=== PATIENT | male | born 1950 | race Caucasian/White ===

== ENCOUNTER 2021-05-22 19:15 | Inpatient (IN) ==
[2021-05-22 21:40] LABS: Basophils # (Auto) 0.01 K/mcL (0.00-0.30); Basophils % (Auto) 0.1 % (0.0-2.0); Eosinophils # (Auto) 0 K/mcL (0.00-0.70); Eosinophils % (Auto) 0 % (0.0-7.0); Hematocrit 36.7 % (40.1-51.0); Hemoglobin 12.1 g/dL (13.7-17.5); Lymphocytes # (Auto) 1.68 K/mcL (1.50-4.80); Lymphocytes % (Auto) 16.2 % (15.5-49.0); Mean Cell Volume 90.8 fL (80.0-100.0); Mean Platelet Volume 10.8 fL (7.4-10.4); Monocytes # (Auto) 0.91 K/mcL (0.10-0.90); Monocytes % (Auto) 8.8 % (1.0-12.0); Neutrophils % (Auto) 74.9 % (38.0-78.0); Platelet Count 152 K/mcL (140-440); RBC 4.04 M/mcL (4.63-6.08); Red Cell Distribution Width 13.6 % (11.5-14.5); WBC 10.4 K/mcL (4.5-11.0)
--- NOTE | 2021-05-22 21:41 | Emergency Department Note ---
HPI General Chief complaint: Cold/Flu Symptoms Stated complaint: Short of breath COVID positive Time Seen by Provider: 05/22/21 19:36 Source: patient Mode of arrival: ambulatory Limitations: no limitations History of Present Illness HPI Narrative: Narrative: 70-year-old male presents to the emergency department stating that he is Covid positive. States he has been sick for 10 days. Has cough and shortness of brinda ath. Rates his discomfort as a 7 on a 0-to-10 scale. States it is constant. Nothing makes it better or worse. Associated with the virus. No radiation of the symptoms. States he was given a pulse oximeter and at home he noted it to be in the 70s. His instructions were to go to the ER if that were the case. He states that he been unable to sleep because of this. The He describes his past medical history of COPD, morbid obesity, congestive heart failure. Patient states that he has been smoking in the past. Patient states that his is Covid positive and sick. She did not get vacci nated. He states that he did get vaccinated. Related Data Home Medications Medication Instructions Recorded Confirmed aspirin 81 mg PO DAILY 01/12/18 05/19/21 atorvastatin 40 mg PO HS 01/12/18 05/19/21 carvedilol [Coreg] 3.125 mg PO DAILY 01/12/18 05/19/21 cholecalciferol (vitamin D3) 5,000 unit PO DAILY 01/12/18 05/19/21 [Dialyvite Vitamin D] cyanocobalamin (vitamin B-12) 500 mcg PO DAILY 01/12/18 05/19/21 docusate sodium 250 mg PO DAILY 01/12/18 05/19/21 duloxetine [Cymbalta] 60 mg PO DAILY 01/12/18 05/19/21 furosemide 40 mg PO DAILY 01/12/18 05/19/21 lisinopril [Zestril] 40 mg PO DAILY 01/12/18 05/19/21 methocarbamol [Robaxin-750] 750 mg PO DAILY 01/12/18 05/19/21 omeprazole 20 mg PO ACB 01/12/18 05/23/21 psyllium husk (aspartame) [Natural PO QHS 01/12/18 05/19/21 Psyllium Fiber Powder] spironolactone 25 mg PO DAILY 01/12/18 05/23/21 terazosin 2 mg PO DAILY 01/12/18 05/23/21 acetaminophen 325 mg tablet 650 mg PO QID PRN tab 03/24/21 05/19/21 albuterol sulfate 90 mcg/actuation 2 puff INHALATION QID 03/24/21 05/19/21 aerosol inhaler budesonide-formoterol HFA 160 2 puff INHALATION BID 03/24/21 05/19/21 mcg-4.5 mcg/actuation aerosol inhaler diclofenac sodium 1 % topical gel 2 g TOPICAL QID 03/24/21 05/19/21 hydrocortisone 2.5 % topical 1 applic TOPICAL BID 03/24/21 05/19/21 ointment lidocaine 5 % topical ointment 1 applic TOPICAL BID 03/24/21 05/19/21 tiotropium bromide 2.5 2 puff INHALATION QDAY 03/24/21 05/23/21 mcg/actuation mist for inhalation tizanidine 4 mg tablet 4 mg PO BID PRN 03/24/21 05/19/21 varenicline 1 mg tablet 1 mg PO BID 03/24/21 05/23/21 metformin 500 mg tablet 500 mg PO BID 04/17/21 05/19/21 griseofulvin microsize 500 mg 1,000 mg PO tab 05/19/21 05/19/21 tablet Previous Rx's Medication Instructions Recorded doxycycline monohydrate 100 mg 100 mg PO BID 7 Days #14 cap 05/19/21 capsule prednisone 20 mg tablet 40 mg PO QAM 5 Days #10 tab 05/19/21 Allergies Allergy/AdvReac Type Severity Reaction Status Date / Time gabapentin Allergy Unknown Unknown Verified 05/19/21 09:58 Review of Systems ROS ROS Narrative: Narrative: Constitutional: Reports fever and weakness Eyes: Reports other (Dry eyes.) ENT ED: Reports throat pain and rhinorrhea Cardiovascular: Denies chest pain Respiratory: Reports shortness of breath and cough Gastrointestinal: Reports nausea; Denies vomiting Genitourinary: Denies dysuria Musculoskeletal: Reports back pain Integumentary: Denies rash Neurological: Reports headache Psychiatric: Denies anxiety and depression Hematological/Lymphatic: Denies easy bleeding Allergic/Immunologic: Denies facial swelling PFSH Narrative Patient History Narrative: Narrative: Medical/Surgical/Family History All Active Problems (Updated 05/23/21 @ 04:52 by Brock Campbell MD) 2019 novel coronavirus-infected pneumonia (NCIP) (Acute) COPD exacerbation (Acute) COVID-19 (Acute) Right hip pain (Chronic) Low back pain (Chronic) Nicotine dependence (Chronic) AAA (abdominal aortic aneurysm) without rupture (Chronic) Actinic keratosis (Chronic) Acute bronchitis due to coxsackievirus (Chronic) Acute bronchitis (Chronic) Acute embolism and thrombosis of other specified deep vein of unspecified lower extremity (Chronic) Angina pectoris (Chronic) BPH (benign prostatic hyperplasia) (Chronic) Bipolar disorder (Chronic) Cervical spondylosis (Chronic) Carpal tunnel syndrome (Chronic) COPD (chronic obstructive pulmonary disease) (Chronic) Chronic diastolic heart failure (Chronic) Combined forms of age-related cataract, left eye (Chronic) Condyloma latum (Chronic) Dysthymic disorder (Chronic) Essential hypertension (Chronic) Hyperlipidemia (Chronic) Impaired fasting glucose (Chronic) Major depressive disorder (Chronic) Morbid obesity due to excess calories (Chronic) Obesity (Chronic) Osteoarthritis of hip (Chronic) Other intervertebral disc degeneration, lumbar region (Chronic) Other meniscus derangements, other medial meniscus, unspecified knee (Chronic) Other specified postprocedural states (Chronic) Pain in right shoulder (Chronic) Pain in unspecified knee (Chronic) Pain in unspecified lower leg (Chronic) Radiculopathy, cervical region (Chronic) Serous retinal detachment, left eye (Chronic) Lumbar vertebral fracture (Chronic) Diabetes (Chronic) Mild congestive heart failure (Chronic) Depression (Chronic) PTSD (post-traumatic stress disorder) (Chronic) Chronic pain (Chronic) Lumbar stenosis with neurogenic claudication (Chronic) Urinary frequency (Chronic) Radiculopathy, lumbar region (Acute) Urinary urgency (Acute) Urge incontinence (Acute) Incomplete bladder emptying (Acute) Slow urinary stream (Acute) Elevated PSA (Acute) Medical History AAA (abdominal aortic aneurysm) without rupture Actinic keratosis Acute bronchitis Acute bronchitis due to coxsackievirus Acute embolism and thrombosis of other specified deep vein of unspecified lower extremity Angina pectoris Bipolar disorder BPH (benign prostatic hyperplasia) Carpal tunnel syndrome Cervical spondylosis Chronic diastolic heart failure Chronic pain Combined forms of age-related cataract, left eye Condyloma latum COPD (chronic obstructive pulmonary disease) COPD exacerbation COVID-19 Depression Diabetes Dysthymic disorder Essential hypertension Hyperlipidemia Impaired fasting glucose Low back pain Lumbar stenosis with neurogenic claudication Lumbar vertebral fracture L4-5 - fell off aicraft Major depressive disorder Mild congestive heart failure Morbid obesity due to excess calories Nicotine dependence Obesity Osteoarthritis of hip Other intervertebral disc degeneration, lumbar region Other meniscus derangements, other medial meniscus, unspecified knee Pain in right shoulder Pain in unspecified knee Pain in unspecified lower leg PTSD (post-traumatic stress disorder) Radiculopathy, cervical region Radiculopathy, lumbar region Right hip pain Serous retinal detachment, left eye Urinary frequency Voiding every 1 hour at night Surgical History History of arthroplasty of right shoulder Other specified postprocedural states Family History Other Cancer HTN (hypertension) Social History Smoking Status: Current some day smoker Alcohol Intake Frequency: a few times a month Substance Use: does not use Exam Narrative Narrative: Narrative: Well-developed morbidly obese elderly male lying in bed with a pulse ox of 92 to 94% on 2 L but only 88% when taken off of oxygen. Temperature is 100.7. Respiratory rate is 18 with a pulse of 79. Weight is 323 pounds. General Limitations: no limitations General appearance: Present alert and in distress Head Head: Present atraumatic and normocephalic Eye Eye: Present normal appearance Neck Neck: Present normal inspection Respiratory Respiratory: Present respiratory distress Cardiovascular Cardiovascular: Present regular rate and normal rhythm Adbominal Abdominal: Present soft; Absent tenderness Extremities Extremities: Present normal inspection Neurological Neurological: Present alert and oriented X3 Psychiatric Psychiatric: Present normal affect and normal mood Skin Skin: Present warm (WNL) and dry Course Consultations Consultation #1: Discussed with hospitalist. Patient is high risk with positive Covid, hypoxia, COPD, CHF, morbid obesity. He recommends admission. Labs and x-ray pending. Time: 20:30 Consultation #2: Chest x-ray shows bilateral infiltrates compatible with Covid. Labs still pending. Time: 21:40 Vital Signs Vital signs: Vital Signs Temperature 100.7 F H 05/22/21 19: Pulse Rate 79 05/22/21 19: Respiratory Rate 18 05/22/21 19:17 Blood Pressure 141/67 05/22/21 19:17 Pulse Oximetry (%) 94 05/22/21 19:17 Temperature 98.2 F 05/23/21 00:02 Pulse Rate 73 05/23/21 00:02 Respiratory Rate 33 H 05/23/21 00:02 Blood Pressure 132/59 05/23/21 00:02 Pulse Oximetry (%) 94 05/23/21 00:02 MDM MDM Narrative Medical decision making narrative: Narrative: Elderly male with known positive Covid test today at the urgent care clinic presents to the ER because of hypoxia. He has the risk factors which include COPD, CHF, morbid obesity with a BMI of 46, tobacco use. Differential diagnosis includes Covid pneumonia, other viral infections, christianne terial infection, other Chest x-ray was compatible with Covid pneumonia. White count was normal. Chemistry panel was unremarkable as was the CBC. Case was discussed with the hospitalist who recognized the patient is being a high risk individual in view of his positive Covid test with COPD, C HF, morbid obesity, tobacco abuse. He he will admit the patient to the hospital for further care. Lab Data Result diagrams: 05/22/21 20:14 05/22/21 20:14 Labs: Lab Results 05/22/21 05/22/21 05/22/21 Range/Units 20:14 20:14 20:30 WBC 10.4 (4.5-11.0) K/mcL RBC 4.04 L (4.63-6.08) M/mcL Hgb 12.1 L (13.7-17.5) g/dL Hct 36.7 L (40.1-51.0) % MCV 90.8 (80.0-100.0) fL MCH 30.0 (26.0-34.0) pg MCHC 33.0 (31.0-36.0) g/dL RDW 13.6 (11.5-14.5) % Plt Count 152 (140-440) K/mcL MPV 10.8 H (7.4-10.4) fL Neut % (Auto) 74.9 (38.0-78.0) % Lymph % (Auto) 16.2 (15.5-49.0) % [place] % (Auto) 8.8 (1.0-12.0) % Eos % (Auto) 0 (0.0-7.0) % Baso % (Auto) 0.1 (0.0-2.0) % Lymph # (Auto) 1.68 (1.50-4.80) K/mcL [place] # (Auto) 0.91 H (0.10-0.90) K/mcL Eos # (Auto) 0 (0.00-0.70) K/mcL Baso # (Auto) 0.01 (0.00-0.30) K/mcL Absolute Neutrophils 7.78 (1.80-8.00) K/mcL D-Dimer (0.27-0.50) ug/mL VBG Lactic Acid 1.0 (0.5-2.0) mmol/L Sodium 135 (133-145) mmol/L Potassium 4.2 (3.3-5.1) mmol/L Chloride 95 L (96-108) mmol/L Carbon Dioxide 27 (22-30) mmol/L Anion Gap 13.0 (8.0-16.0) BUN 12 (8-23) mg/dL Creatinine 0.9 (0.7-1.2) mg/dL GFR Calculation 85 Glucose 111 H (70-105) mg/dL Calcium 8.6 (8.6-10.4) mg/dL Total Bilirubin 0.4 (0.1-1.0) mg/dL AST 34 (<40) U/L ALT 20 (<40) U/L Alkaline Phosphatase 49 (39-117) U/L C-Reactive Protein (0.03-0.80) mg/dL Total Protein 6.5 (5.9-8.4) gm/dL Albumin 3.5 (3.2-5.2) gm/dL Globulin 3.0 (2.2-3.7) gm/dL Albumin/Globulin Ratio 1.2 (1.0-2.3) Procalcitonin (<0.10) ng/mL 05/22/21 05/22/21 05/22/21 Range/Units 22:16 22:16 22:17 WBC (4.5-11.0) K/mcL RBC (4.63-6.08) M/mcL Hgb (13.7-17.5) g/dL Hct (40.1-51.0) % MCV (80.0-100.0) fL MCH (26.0-34.0) pg MCHC (31.0-36.0) g/dL RDW (11.5-14.5) % Plt Count (140-440) K/mcL MPV (7.4-10.4) fL Neut % (Auto) (38.0-78.0) % Lymph % (Auto) (15.5-49.0) % [place] % (Auto) (1.0-12.0) % Eos % (Auto) (0.0-7.0) % Baso % (Auto) (0.0-2.0) % Lymph # (Auto) (1.50-4.80) K/mcL [place] # (Auto) (0.10-0.90) K/mcL Eos # (Auto) (0.00-0.70) K/mcL Baso # (Auto) (0.00-0.30) K/mcL Absolute Neutrophils (1.80-8.00) K/mcL D-Dimer 1.04 H (0.27-0.50) ug/mL VBG Lactic Acid (0.5-2.0) mmol/L Sodium (133-145) mmol/L Potassium (3.3-5.1) mmol/L Chloride (96-108) mmol/L Carbon Dioxide (22-30) mmol/L Anion Gap (8.0-16.0) BUN (8-23) mg/dL Creatinine (0.7-1.2) mg/dL GFR Calculation Glucose (70-105) mg/dL Calcium (8.6-10.4) mg/dL Total Bilirubin (0.1-1.0) mg/dL AST (<40) U/L ALT (<40) U/L Alkaline Phosphatase (39-117) U/L C-Reactive Protein 12.90 H (0.03-0.80) mg/dL Total Protein (5.9-8.4) gm/dL Albumin (3.2-5.2) gm/dL Globulin (2.2-3.7) gm/dL Albumin/Globulin Ratio (1.0-2.3) Procalcitonin 0.21 H (<0.10) ng/mL Discharge Plan Patient/Caregiver Discharge Instructions Pt seen by TECHNICAL SUPPORT TECHNICIAN/PA only: No Clinical Impression: 2019 novel coronavirus-infected pneumonia (NCIP) Activity: as instructed Patient Disposition: Xfer As Inpt ([facility]) Condition: Fair Discharge Date/Time: 05/22/21 23:06
[2021-05-22 22:01] LABS: ALT/SGPT 20 U/L (<40); AST/SGOT 34 U/L (<40); Albumin 3.5 gm/dL (3.2-5.2); Albumin/Globulin Ratio 1.2 (1.0-2.3); Alkaline Phosphatase 49 U/L (39-117); Bilirubin,Total 0.4 mg/dL (0.1-1.0); Blood Urea Nitrogen 12 mg/dL (8-23); Calcium 8.6 mg/dL (8.6-10.4); Carbon Dioxide 27 mmol/L (22-30); Chloride 95 mmol/L (96-108); Glomerular Filtration Rate 85; Glucose 111 mg/dL (70-105)
[2021-05-22] MEDS ORDERED: SENNOSIDES 1 TABLET PO PRN ×2 (22:06→23:22)
[2021-05-22] MEDS ORDERED: ALBUTEROL SULFATE 2.5 MG/3 ML NEBULIZER NEB PRN ×2 (22:06→23:22)
[2021-05-22] MEDS ORDERED: IPRATROPIUM/ALBUTEROL 3 ML AMPUL.NEB NEB PRN ×2 (22:06→23:22)
[2021-05-22] MEDS ORDERED: ACETAMINOPHEN 325 MG TABLET PO PRN ×2 (22:06→23:22)
[2021-05-22] MEDS ORDERED: LACTULOSE 20 GM/30 ML ORAL.SOL PO PRN ×2 (22:06→23:22)
[2021-05-22] MEDS ORDERED: ONDANSETRON 4 MG/2 ML VIAL IV PRN ×2 (22:06→23:22)
[2021-05-22] MEDS ORDERED: REMDESIVIR 200 MG in 0.9 % SODIUM CHLORIDE 250 ML IV ONE ×2 (22:06→23:22)
[2021-05-22] MEDS ORDERED: ENOXAPARIN 40 MG/0.4 ML SYRINGE SQ SCH (22:10)
[2021-05-22] MEDS ORDERED: DEXAMETHASONE 10 MG/ML VIAL IV SCH (22:10)
[2021-05-22] MEDS ORDERED: DEXTROSE 50% 50 ML VIAL IV PRN ×2 (22:12→23:22)
[2021-05-22] MEDS ORDERED: DEXTROSE 31 GM ORAL.SUSP PO PRN ×2 (22:12→23:22)
--- NOTE | 2021-05-22 22:16 | Internal Med History&Physical ---
HPI History of Present Illness Patient information: Note initiated : 05/22/21 at 10:14 pm Service Date, if different from initiated Date: [] Patient: Josiah Leos 70 y/o M admitted on for Short of breath COVID positive. Chief Complaint: [] History of present illness: Mr. Leos is a 70 year old male with a history of CHF, COPD, type 2 DM, obesity, fully vaccinated for COVID-19 with the Moderna vaccine, recently diagnosed with COVID-19 who presented to the ED for hypoxia on a home oxygen saturation meter. In the ED the patient was found to have a 2 l/min oxygen requirement, workup is suggestive of severe COVID-19 pneumonia as the cause of hypoxia. Hospital medicine was asked to admit the patient. Review of systems Constitutional: no fever, fatigue, or weight loss Eyes: no vision changes or pain Cardiovascular: no chest pain, no palpitations Respiratory: positive for cough and dyspnea Gastrointestinal: no nausea, vomiting, or diarrhea Genitourinary: no dysuria or difficulty voiding Musculoskeletal: no arthralgia or myalgia Integumentary: no skin lesion or wound Neurological: no focal weakness or numbness Psychiatric: no anxiety or depression Physical exam Head: Atraumatic, normal inspection. Eyes: normal appearance, no scleral icterus. Neck: full ROM Respiratory: no respiratory distress. Cardiovascular: normal rate and rhythm, S1, S2. GI/Abdominal: obesely distended, soft, nontender, no guarding. Extremities: full range of motion, nontender. Neurological: CN II-XII intact, intact motor, intact sensation. Psychiatric: normal mood. Skin: warm, normal color PFSH PFSH All Active Problems (Updated 05/23/21 @ 04:52 by Brock Campbell MD) 2019 novel coronavirus-infected pneumonia (NCIP) (Acute) COPD exacerbation (Acute) COVID-19 (Acute) Right hip pain (Chronic) Low back pain (Chronic) Nicotine dependence (Chronic) AAA (abdominal aortic aneurysm) without rupture (Chronic) Actinic keratosis (Chronic) Acute bronchitis due to coxsackievirus (Chronic) Acute bronchitis (Chronic) Acute embolism and thrombosis of other specified deep vein of unspecified lower extremity (Chronic) Angina pectoris (Chronic) BPH (benign prostatic hyperplasia) (Chronic) Bipolar disorder (Chronic) Cervical spondylosis (Chronic) Carpal tunnel syndrome (Chronic) COPD (chronic obstructive pulmonary disease) (Chronic) Chronic diastolic heart failure (Chronic) Combined forms of age-related cataract, left eye (Chronic) Condyloma latum (Chronic) Dysthymic disorder (Chronic) Essential hypertension (Chronic) Hyperlipidemia (Chronic) Impaired fasting glucose (Chronic) Major depressive disorder (Chronic) Morbid obesity due to excess calories (Chronic) Obesity (Chronic) Osteoarthritis of hip (Chronic) Other intervertebral disc degeneration, lumbar region (Chronic) Other meniscus derangements, other medial meniscus, unspecified knee (Chronic) Other specified postprocedural states (Chronic) Pain in right shoulder (Chronic) Pain in unspecified knee (Chronic) Pain in unspecified lower leg (Chronic) Radiculopathy, cervical region (Chronic) Serous retinal detachment, left eye (Chronic) Lumbar vertebral fracture (Chronic) Diabetes (Chronic) Mild congestive heart failure (Chronic) Depression (Chronic) PTSD (post-traumatic stress disorder) (Chronic) Chronic pain (Chronic) Lumbar stenosis with neurogenic claudication (Chronic) Urinary frequency (Chronic) Radiculopathy, lumbar region (Acute) Urinary urgency (Acute) Urge incontinence (Acute) Incomplete bladder emptying (Acute) Slow urinary stream (Acute) Elevated PSA (Acute) Medical History AAA (abdominal aortic aneurysm) without rupture Actinic keratosis Acute bronchitis Acute bronchitis due to coxsackievirus Acute embolism and thrombosis of other specified deep vein of unspecified lower extremity Angina pectoris Bipolar disorder BPH (benign prostatic hyperplasia) Carpal tunnel syndrome Cervical spondylosis Chronic diastolic heart failure Chronic pain Combined forms of age-related cataract, left eye Condyloma latum COPD (chronic obstructive pulmonary disease) COPD exacerbation COVID-19 Depression Diabetes Dysthymic disorder Essential hypertension Hyperlipidemia Impaired fasting glucose Low back pain Lumbar stenosis with neurogenic claudication Lumbar vertebral fracture L4-5 - fell off aicraft Major depressive disorder Mild congestive heart failure Morbid obesity due to excess calories Nicotine dependence Obesity Osteoarthritis of hip Other intervertebral disc degeneration, lumbar region Other meniscus derangements, other medial meniscus, unspecified knee Pain in right shoulder Pain in unspecified knee Pain in unspecified lower leg PTSD (post-traumatic stress disorder) Radiculopathy, cervical region Radiculopathy, lumbar region Right hip pain Serous retinal detachment, left eye Urinary frequency Voiding every 1 hour at night Surgical History History of arthroplasty of right shoulder Other specified postprocedural states Family History Other Cancer HTN (hypertension) Social History marital status: education level: college occupational status: employed and retired occupation: Retired [employer]; works as [employer] smoking status: Current some day smoker alcohol intake frequency: a few times a month substance use type: does not use MEDS/ALLERGIES Home Medications and Allergies Home Medications Medication Instructions Recorded Confirmed Type aspirin 81 mg PO DAILY 01/12/18 05/23/21 History atorvastatin 40 mg PO HS 01/12/18 05/23/21 History carvedilol [Coreg] 3.125 mg PO DAILY 01/12/18 05/23/21 History cholecalciferol (vitamin D3) 5,000 unit PO DAILY 01/12/18 05/23/21 History [Dialyvite Vitamin D] cyanocobalamin (vitamin B-12) 500 mcg PO DAILY 01/12/18 05/23/21 History docusate sodium 250 mg PO BID 01/12/18 05/23/21 History duloxetine [Cymbalta] 60 mg PO QHS 01/12/18 05/23/21 History furosemide 40 mg PO DAILY 01/12/18 05/23/21 History lisinopril [Zestril] 40 mg PO DAILY 01/12/18 05/23/21 History methocarbamol [Robaxin-750] 750 mg PO DAILY 01/12/18 05/23/21 History omeprazole 20 mg PO ACB 01/12/18 05/23/21 History psyllium husk (aspartame) [Natural 2 ea PO QHS 01/12/18 05/23/21 History Psyllium Fiber Powder] spironolactone 25 mg PO DAILY 01/12/18 05/23/21 History terazosin 2 mg PO DAILY 01/12/18 05/23/21 History acetaminophen 325 mg tablet 650 mg PO QID PRN tab 03/24/21 05/23/21 History albuterol sulfate 90 mcg/actuation 2 puff INHALATION QIDP PRN MDD 03/24/21 05/23/21 History aerosol inhaler wheezing budesonide-formoterol HFA 160 2 puff INHALATION BID 03/24/21 05/23/21 History mcg-4.5 mcg/actuation aerosol inhaler diclofenac sodium 1 % topical gel 2 g TOPICAL QID 03/24/21 05/23/21 History hydrocortisone 2.5 % topical 1 applic TOPICAL BID 03/24/21 05/23/21 History ointment lidocaine 5 % topical ointment 1 applic TOPICAL BID 03/24/21 05/23/21 History tiotropium bromide 2.5 2 puff INHALATION QDAY 03/24/21 05/23/21 History mcg/actuation mist for inhalation tizanidine 4 mg tablet 4 mg PO BID PRN 03/24/21 05/23/21 History varenicline 1 mg tablet 1 mg PO BID 03/24/21 05/23/21 History metformin 500 mg tablet 500 mg PO BID 04/17/21 05/23/21 History doxycycline monohydrate 100 mg 100 mg PO BID 7 Days #14 cap 05/19/21 05/23/21 Rx capsule griseofulvin microsize 500 mg 1,000 mg PO tab 05/19/21 05/19/21 History tablet prednisone 20 mg tablet 40 mg PO QAM 5 Days #10 tab 05/19/21 05/23/21 Rx metoprolol succinate 12.5 mg PO DAILY 05/23/21 05/23/21 History Allergies Allergy/AdvReac Type Severity Reaction Status Date / Time gabapentin Allergy Unknown Unknown Verified 05/19/21 09:58 EXAM Constitutional Vitals: Temp Pulse Resp BP Pulse Ox 100.7 F H 78 18 145/64 91 05/22/21 19:17 05/22/21 21:52 05/22/21 19:17 05/22/21 21:52 05/22/21 21:52 DATA Data Completed and Pending Labs: Labs from last 24 hours 05/22/21 05/22/21 05/22/21 20:30 20:14 20:14 WBC 10.4 RBC 4.04 L Hgb 12.1 L Hct 36.7 L MCV 90.8 MCH 30.0 MCHC 33.0 RDW 13.6 Plt Count 152 MPV 10.8 H Neut % (Auto) 74.9 Lymph % (Auto) 16.2 [place] % (Auto) 8.8 Eos % (Auto) 0 Baso % (Auto) 0.1 Lymph # (Auto) 1.68 [place] # (Auto) 0.91 H Eos # (Auto) 0 Baso # (Auto) 0.01 Absolute Neutrophils 7.78 VBG Lactic Acid 1.0 Sodium 135 Potassium 4.2 Chloride 95 L Carbon Dioxide 27 Anion Gap 13.0 BUN 12 Creatinine 0.9 GFR Calculation 85 Glucose 111 H Calcium 8.6 Total Bilirubin 0.4 AST 34 ALT 20 Alkaline Phosphatase 49 Total Protein 6.5 Albumin 3.5 Globulin 3.0 Albumin/Globulin Ratio 1.2 A/P Narrative A/P Narrative: Assessment: 70 year old male with a history of CHF, COPD, type 2 DM, obesity, fully vaccinated with the Moderna vaccine, diagnosed with COVID-19 on 05/19/21 now admitted for severe COVID-19 pneumonia. #Acute hypoxic respiratory failure #Severe COVID-19 pneumonia #Congestive heart failure #COPD #Type 2 diabetes mellitus #Essential hypertension #Depression #GERD #BPH #Obesity w/ BMI 46 Plan -Dexamethasone and Remdesivir -Oxygen supplementation -Check CRP, d-dimer, procalcitonin -DuoNeb Q6H and albuterol prn -Home medications reconciliation -Continuous pulse oximetry -hospital monitor -DVT ppx: Lovenox -Code status: -Disposition: TBD Time Spent With Patient Time: Total time spent is greater than 50% in coordination of care (as documented) at patient's floor/unit and/or counseling patient:
[2021-05-23] MEDS ORDERED: ENOXAPARIN 40 MG/0.4 ML SYRINGE ONE (00:59)
[2021-05-23] MEDS ORDERED: DEXAMETHASONE 10 MG/ML VIAL ONE (00:59)
[2021-05-23] MEDS ORDERED: 0.9 % SODIUM CHLORIDE 10 ML SYRINGE IV SCH (06:00)
[2021-05-23] MEDS: 0.9 % SODIUM CHLORIDE 10 ML SYRINGE IV SCH ×3 (06:28→23:15)
[2021-05-23 07:04] LABS: Basophils # (Auto) 0.01 K/mcL (0.00-0.30); Basophils % (Auto) 0.1 % (0.0-2.0); Eosinophils # (Auto) 0 K/mcL (0.00-0.70); Eosinophils % (Auto) 0 % (0.0-7.0); Hematocrit 37.1 % (40.1-51.0); Hemoglobin 12.3 g/dL (13.7-17.5); Lymphocytes # (Auto) 1.26 K/mcL (1.50-4.80); Lymphocytes % (Auto) 12.5 % (15.5-49.0); Mean Cell Volume 92.1 fL (80.0-100.0); Mean Corpuscular HGB Conc 33.2 g/dL (31.0-36.0); Mean Platelet Volume 10.5 fL (7.4-10.4); Monocytes # (Auto) 0.92 K/mcL (0.10-0.90); Monocytes % (Auto) 9.1 % (1.0-12.0); Neutrophils % (Auto) 78.3 % (38.0-78.0); Platelet Count 146 K/mcL (140-440); RBC 4.03 M/mcL (4.63-6.08); Red Cell Distribution Width 13.5 % (11.5-14.5); WBC 10.1 K/mcL (4.5-11.0)
[2021-05-23] MEDS ORDERED: INSULIN LISPRO 1 UNIT/0.01 ML UNIT SQ SCH (07:30)
[2021-05-23] MEDS: INSULIN LISPRO 1 UNIT/0.01 ML UNIT SQ SCH ×4 (07:39→23:12)
[2021-05-23 07:46] LABS: ALT/SGPT 23 U/L (<40); AST/SGOT 43 U/L (<40); Albumin 3.2 gm/dL (3.2-5.2); Alkaline Phosphatase 46 U/L (39-117); Bilirubin,Direct < 0.2 mg/dL (0-0.3); Bilirubin,Total 0.3 mg/dL (0.1-1.0); Blood Urea Nitrogen 12 mg/dL (8-23); Calcium 8.8 mg/dL (8.6-10.4); Carbon Dioxide 25 mmol/L (22-30); Chloride 98 mmol/L (96-108); Globulin 3.1 gm/dL (2.2-3.7); Glomerular Filtration Rate 90; Glucose 127 mg/dL (70-105); Lactate Dehydrogenase 388 U/L (135-225); Phosphorous 2.4 mg/dL (2.5-4.5); Triglycerides 156 mg/dL (<150)
--- NOTE | 2021-05-23 08:22 | XRay Report ---
HISTORY: Short of breath, smoker, tested positive for Covid FINDINGS: There are patchy alveolar infiltrates in both lungs with the greatest involvement in the lower lobes, left worse than right. These extend up to the hilum. There is no pleural effusion. The heart is borderline enlarged but magnified by portable technique. The pulmonary vessels are obscured by the infiltrates. IMPRESSION: Bilateral alveolar infiltrates. This is more likely due to pneumonia than pulmonary edema. Interpreted and Authenticated by: Seven Chambers 05/23/21
[2021-05-23] MEDS ORDERED: ENOXAPARIN 40 MG/0.4 ML SYRINGE SQ SCH (09:00)
[2021-05-23] MEDS ORDERED: ENOXAPARIN 30 MG/0.3 ML SYRINGE SQ SCH (09:00)
[2021-05-23] MEDS: DEXAMETHASONE 10 MG/ML VIAL IV SCH (10:11)
[2021-05-23] MEDS ORDERED: tiZANidine 4 MG TABLET PO PRN (13:03)
[2021-05-23] MEDS ORDERED: IPRATROPIUM/ALBUTEROL 3 ML AMPUL.NEB NEB PRN (13:07)
[2021-05-23] MEDS: REMDESIVIR 100 MG in 0.9 % SODIUM CHLORIDE 250 ML IV SCH (15:42)
--- NOTE | 2021-05-23 16:59 | Internal Med Progress Note ---
SUBJECTIVE Subjective Patient information: Note initiated : 05/23/21 at 4:59 pm Service Date, if different from initiated Date: [] Patient: Josiah Leos 70 y/o M admitted on 05/22/21 for Short of breath COVID positive. Chief Complaint: [] Interval history: Mr. Leos is a 70 year old male with a history of CHF, COPD, type 2 DM, obesity, fully vaccinated for COVID-19 with the Moderna vaccine, recently diagnosed with COVID-19 who presented to the ED for hypoxia on a home oxygen saturation meter. In the ED the patient was found to have a 2 l/min oxyg en requirement, workup is suggestive of severe COVID-19 pneumonia as the cause of hypoxia. Hospital medicine was asked to admit the patient. 05/24: stable respiratory status, might be able to wean down oxygen requirement today, chest xray shows improved bilateral infiltrates, CRP downtrending. Review of systems: denies dyspnea, chest pain, or abdominal discomfort. Physical exam Head: Atraumatic, normal inspection. Eyes: normal appearance, no scleral icterus. Neck: full ROM Respiratory: high flow nasal canula oxygne, no respiratory distress. Cardiovascular: normal rate and rhythm, S1, S2. GI/Abdominal: obesely distended, soft, nontender, no guarding. Extremities: full range of motion, nontender. Neurological: CN II-XII intact, intact motor, intact sensation. Psychiatric: normal mood. Skin: warm, normal color Constitutional Vitals: Vital Signs Temp Pulse Resp BP Pulse Ox 97.9 F 59 L 13 117/72 97 05/23/21 16:01 05/23/21 16:01 05/23/21 16:01 05/23/21 16:01 05/23/21 16:01 Period Temp Pulse Resp BP Sys/Contreras Pulse Ox Last 24 Hr 96.8 F-100.7 F 57-87 13-33 114-162/48-105 88-98 Intake and Output 05/23/21 05/23/21 05/23/21 05:59 13:59 21:59 Intake Total 250 960 650 Output Total 450 1925 325 Balance -200 -965 325 Weight 146.646 kg 146.646 kg Patient Weight 05/24/21 05:59 Weight 146.646 kg Intake & Output: Intake & Output 05/23/21 05/23/21 05/23/21 05:59 13:59 21:59 Intake Total 250 960 650 Output Total 450 1925 325 Balance -200 -965 325 Weight 146.646 kg 146.646 kg Intake: IV 250 250 Veklury 100 mg In Sodium 250 250 Chloride 0.9% 250 ml @ 500 mls/ hr IV DAILY@1400 [facility] Rx#: [id number] Oral 960 400 Output: Void Amount 450 1925 325 Other: Meal snack Breakfast Percent of Meal Consumed 100% 100% Feeding Ability Independent Urine Appearance Clear Clear Urine Color Straw Light Destiney Light Destiney Urine Odor Normal Normal OBJ DATA Labs CBC & Chem 7: 05/24/21 05:22 05/24/21 05:22 Labs: Abnormal Lab Results 05/23/21 05/23/21 05/22/21 05:00 05:00 22:17 RBC 4.03 L Hgb 12.3 L Hct 37.1 L MPV 10.5 H Neut % (Auto) 78.3 H Lymph % (Auto) 12.5 L Lymph # (Auto) 1.26 L [place] # (Auto) 0.92 H D-Dimer Chloride Glucose 127 H Phosphorus 2.4 L AST 43 H Lactate Dehydrogenase 388 H C-Reactive Protein 14.40 H Triglycerides 156 H Procalcitonin 0.21 H 05/22/21 05/22/21 05/22/21 22:16 22:16 20:14 RBC Hgb Hct MPV Neut % (Auto) Lymph % (Auto) Lymph # (Auto) [place] # (Auto) D-Dimer 1.04 H Chloride 95 L Glucose 111 H Phosphorus AST Lactate Dehydrogenase C-Reactive Protein 12.90 H Triglycerides Procalcitonin 05/22/21 20:14 RBC 4.04 L Hgb 12.1 L Hct 36.7 L MPV 10.8 H Neut % (Auto) Lymph % (Auto) Lymph # (Auto) [place] # (Auto) 0.91 H D-Dimer Chloride Glucose Phosphorus AST Lactate Dehydrogenase C-Reactive Protein Triglycerides Procalcitonin Meds: Medications Acetaminophen (Acetaminophen 325 Mg Tablet) 650 mg PO Q6HP PRN; Protocol PRN Reason: Per Pain Protocol/Fever > 101 Albuterol/Ipratropium (Ipratropium/Albuterol 3 Ml Ampul.Neb) 3 ml NEB Q4HRT PRN PRN Reason: Shortness Of Breath Aspirin (Aspirin 81 Mg Tab.Chew) 81 mg PO DAILY [facility] Atorvastatin Calcium (Atorvastatin 40 Mg Tablet) 40 mg PO HS [facility] Dexamethasone (Dexamethasone 10 Mg/Ml Vial) 6 mg IV DAILY [facility] Stop: 06/01/21 22:09 Last Admin: 05/23/21 10:11 Dose: 6 mg Documented by: Dextrose (Dextrose 50% 50 Ml Vial) 0 ml IV UD PRN PRN Reason: Hypoglycemia Diagnostic Test (Pha) (Accu-Chek 1 Each Strip) 1 each FS ACHS [facility] Last Admin: 05/23/21 16:29 Dose: 1 each Documented by: Duloxetine HCl (Duloxetine 30 Mg Capsule) 60 mg PO HS [facility] Enoxaparin Sodium (Enoxaparin 40 Mg/0.4 Ml Syringe) 40 mg SQ DAILY [facility] Furosemide (Furosemide 40 Mg Tablet) 40 mg PO DAILY [facility] Glucose (Dextrose 31 Gm Oral.Susp) 15 gm PO PRN PRN PRN Reason: Hypoglycemia REMDESIVIR 100 mg/ Sodium (Chloride) 250 mls @ 500 mls/hr IV DAILY@1400 [facility] Stop: 05/26/21 14:29 Last Infusion: 05/23/21 16:29 Dose: Infused Documented by: Insulin Human Lispro (Insulin Lispro 1 Unit/0.01 Ml Unit) 0 unit SQ [facility]; Protocol Last Admin: 05/23/21 16:30 Dose: Not Given Documented by: Lactulose (Lactulose 20 Gm/30 Ml Oral.Linnette) 10 gm PO DAILYP PRN PRN Reason: Constipation Metoprolol Succinate (Metoprolol Succinate 25 Mg Tab.Xl.24h) 12.5 mg PO DAILY [facility] Omeprazole (Omeprazole 20 Mg Capsule) 20 mg PO ACB [facility] Ondansetron HCl (Ondansetron 4 Mg/2 Ml Vial) 4 mg IV Q4HP PRN; Protocol PRN Reason: Nausea And Vomiting Budesonide- Formoterol 160-4.5 Mcg/Actuation Hfa Inhaler 1 dose INH BID [facility] Spiriva Respimat 2.5 Mcg/Actuation Inhaler 2 dose INH DAILY [facility] Senna (Sennosides 1 Tablet) 2 tab PO HSP PRN PRN Reason: Constipation Sodium Chloride (0.9 % Sodium Chloride 10 Ml Syringe) 10 ml IV Q8 [facility] Last Admin: 05/23/21 16:30 Dose: 10 ml Documented by: Spironolactone (Spironolactone 25 Mg Tablet) 25 mg PO DAILY [facility] Terazosin HCl (Terazosin 1 Mg Capsule) 2 mg PO DAILY [facility] Tizanidine HCl (Tizanidine 4 Mg Tablet) 4 mg PO BIDP PRN PRN Reason: pain A/P Narrative A/P Narrative: Assessment: 70 year old male with a history of CHF, COPD, type 2 DM, obesity, fully vaccinated with the Moderna vaccine, diagnosed with COVID-19 on 05/19/21 now admitted for severe COVID-19 pneumonia. #Acute hypoxic respiratory failure #Severe COVID-19 pneumonia #Congestive heart failure (stable) #COPD (stable) #Type 2 diabetes mellitus #Essential hypertension #Depression #GERD #BPH #CHELO-has not used CPAP in several months #Obesity w/ BMI 46 #Insomnia Plan -Dexamethasone and Remdesivir -Oxygen supplementation -Follow CRP. -Continue DuoNeb Q6H and albuterol prn for now. -Essential home medications, holding LABA/LAMA for now for RENEE/ROCKY treatment. -SSI-low, holding home metformin for now. -Continuous pulse oximetry -school lunch monitor -Patient declined CPAP at bedtime. -Melatonin HS prn. -DVT ppx: Lovenox -Code status: Full -Disposition: Probably home when stable. Time Spent With Patient Time: Total time spent is greater than 50% in coordination of care (as documented) at patient's floor/unit and/or counseling patient: QUALITY VTE Deep Vein Thrombosis/Pulmonary Embolism Present on Admission: No
[2021-05-23] MEDS ORDERED: ENOXAPARIN 120 MG/0.8 ML SYRINGE SQ SCH (21:00)
[2021-05-23] MEDS ORDERED: REMDESIVIR 100 MG in 0.9 % SODIUM CHLORIDE 250 ML IV SCH (22:15)
[2021-05-23] MEDS ORDERED: MELATONIN 3 MG TABLET PO ONE (22:51)
[2021-05-23] MEDS: DULoxetine 30 MG CAPSULE PO SCH (23:13)
[2021-05-23] MEDS: MELATONIN 3 MG TABLET PO PRN (23:13)
[2021-05-23] MEDS: ATORVASTATIN 40 MG TABLET PO SCH (23:13)
[2021-05-24] MEDS: 0.9 % SODIUM CHLORIDE 10 ML SYRINGE IV SCH ×3 (06:00→21:14)
[2021-05-24 07:35] LABS: Basophils # (Auto) 0.02 K/mcL (0.00-0.30); Basophils % (Auto) 0.2 % (0.0-2.0); Eosinophils # (Auto) 0 K/mcL (0.00-0.70); Eosinophils % (Auto) 0 % (0.0-7.0); Hematocrit 35.3 % (40.1-51.0); Hemoglobin 11.8 g/dL (13.7-17.5); Lymphocytes # (Auto) 2.48 K/mcL (1.50-4.80); Lymphocytes % (Auto) 30.5 % (15.5-49.0); Mean Cell Volume 90.7 fL (80.0-100.0); Mean Corpuscular HGB Conc 33.4 g/dL (31.0-36.0); Mean Platelet Volume 10.7 fL (7.4-10.4); Monocytes # (Auto) 0.84 K/mcL (0.10-0.90); Monocytes % (Auto) 10.3 % (1.0-12.0); Platelet Count 166 K/mcL (140-440); RBC 3.89 M/mcL (4.63-6.08); Red Cell Distribution Width 13.4 % (11.5-14.5)
[2021-05-24 07:55] LABS: ALT/SGPT 28 U/L (<40); AST/SGOT 42 U/L (<40); Albumin/Globulin Ratio 1.1 (1.0-2.3); Alkaline Phosphatase 45 U/L (39-117); Bilirubin,Direct < 0.2 mg/dL (0-0.3); Bilirubin,Total 0.2 mg/dL (0.1-1.0); Blood Urea Nitrogen 17 mg/dL (8-23); Calcium 8.5 mg/dL (8.6-10.4); Carbon Dioxide 27 mmol/L (22-30); Chloride 104 mmol/L (96-108); Globulin 2.8 gm/dL (2.2-3.7); Glomerular Filtration Rate 95; Glucose 115 mg/dL (70-105); Lactate Dehydrogenase 332 U/L (135-225); Phosphorous 2.6 mg/dL (2.5-4.5); Triglycerides 93 mg/dL (<150); Uric Acid 3.9 mg/dL (2.5-8.0)
[2021-05-24] MEDS: DEXAMETHASONE 10 MG/ML VIAL IV SCH (07:56)
[2021-05-24] MEDS: METOPROLOL SUCCINATE 25 MG TAB.XL.24H PO SCH (07:56)
[2021-05-24] MEDS: ENOXAPARIN 40 MG/0.4 ML SYRINGE SQ SCH (07:57)
[2021-05-24] MEDS: SPIRONOLACTONE 25 MG TABLET PO SCH (07:57)
[2021-05-24] MEDS: ASPIRIN 81 MG TAB.CHEW PO SCH (07:57)
[2021-05-24] MEDS: FUROSEMIDE 40 MG TABLET PO SCH (07:57)
[2021-05-24] MEDS: OMEPRAZOLE 20 MG CAPSULE PO SCH (07:57)
[2021-05-24] MEDS: INSULIN LISPRO 1 UNIT/0.01 ML UNIT SQ SCH ×4 (08:06→21:10)
[2021-05-24 08:57] LABS: WBC 8.1 K/mcL (4.5-11.0)
[2021-05-24] MEDS: SPIRIVA RESPIMAT INH SCH (09:10)
[2021-05-24] MEDS: TERAZOSIN 1 MG CAPSULE PO SCH (09:10)
--- NOTE | 2021-05-24 09:24 | XRay Report ---
HISTORY: Follow-up COVID pneumonia FINDINGS: Mild to moderate alveolar infiltrates are present in both lungs. There has been moderate improvement bilaterally since 05/22/21. The heart remains mildly enlarged. No pleural effusion is present. Aorta is mildly tortuous. IMPRESSION: Improving bilateral pneumonia Interpreted and Authenticated by: Seven Chambers 05/24/21
[2021-05-24] MEDS: REMDESIVIR 100 MG in 0.9 % SODIUM CHLORIDE 250 ML IV SCH (12:50)
--- NOTE | 2021-05-24 13:08 | Internal Med Progress Note ---
SUBJECTIVE Subjective Patient information: Note initiated : 05/24/21 at 1:03 pm Service Date, if different from initiated Date: [] Patient: Josiah Leos 70 y/o M admitted on 05/22/21 for Short of breath COVID positive. Chief Complaint: [] Interval history: Mr. Leos is a 70 year old male with a history of CHF, COPD, type 2 DM, obesity, fully vaccinated for COVID-19 with the Moderna vaccine, recently diagnosed with COVID-19 who presented to the ED for hypoxia on a home oxygen saturation meter. In the ED the patient was found to have a 2 l/min oxyg en requirement, workup is suggestive of severe COVID-19 pneumonia as the cause of hypoxia. Hospital medicine was asked to admit the patient. 05/24: stable respiratory status, might be able to wean down oxygen requirement today, chest xray shows improved bilateral infiltrates, CRP downtrending. 05/25 Constitutional Vitals: Vital Signs Temp Pulse Resp BP Pulse Ox 98.2 F 71 22 106/61 92 05/24/21 08:01 05/24/21 12:13 05/24/21 12:13 05/24/21 10:02 05/24/21 12:13 Period Temp Pulse Resp BP Sys/Cnotreras Pulse Ox Last 24 Hr 96.9 F-98.2 F 54-73 13-26 106-149/61-94 92-98 Intake and Output 05/23/21 05/24/21 05/24/21 21:59 05:59 13:59 Intake Total 650 480 Output Total 600 925 400 Balance 50 -925 80 Weight 147.327 kg Intake & Output: Intake & Output 05/23/21 05/24/21 05/24/21 21:59 05:59 13:59 Intake Total 650 480 Output Total 600 925 400 Balance 50 -925 80 Weight 147.327 kg Intake: IV 250 Veklury 100 mg In Sodium 250 Chloride 0.9% 250 ml @ 500 mls/ hr IV DAILY@1400 [facility] Rx#: [id number] Oral 400 480 Output: Void Amount 600 925 400 Other: Meal Dinner Breakfast Percent of Meal Consumed 100% 100% Feeding Ability Independent Urine Appearance Clear Clear Clear Urine Color Dark Yellow Dark Yellow Bright Yellow Urine Odor Normal Normal # Bowel Movements 2 Exam: General: Alert, Awake, No acute Distress, obese Eyes/N/T: EOMI, Head/Neck: neck supple, CV: RRR, No murmurs, Pulm: b/l, no wheezing Abd: soft, nontender, +BS x4 Ext: no clubbing/cyanosis/edema Neuro: Alert, no focal deficits, moves all extremities, Skin: warm/dry OBJ DATA Labs CBC & Chem 7: 05/24/21 05:22 05/24/21 05:22 Labs: Abnormal Lab Results 05/24/21 05/24/21 05/24/21 05:23 05:22 05:22 RBC 3.89 L Hgb 11.8 L Hct 35.3 L MPV 10.7 H Neut % (Auto) Lymph % (Auto) Lymph # (Auto) [place] # (Auto) D-Dimer Chloride Glucose 115 H Calcium 8.5 L Phosphorus AST 42 H Lactate Dehydrogenase 332 H C-Reactive Protein 8.30 H Total Protein 5.8 L Albumin 3.0 L Triglycerides Procalcitonin 05/23/21 05/23/21 05/22/21 05:00 05:00 22:17 RBC 4.03 L Hgb 12.3 L Hct 37.1 L MPV 10.5 H Neut % (Auto) 78.3 H Lymph % (Auto) 12.5 L Lymph # (Auto) 1.26 L [place] # (Auto) 0.92 H D-Dimer Chloride Glucose 127 H Calcium Phosphorus 2.4 L AST 43 H Lactate Dehydrogenase 388 H C-Reactive Protein 14.40 H Total Protein Albumin Triglycerides 156 H Procalcitonin 0.21 H 05/22/21 05/22/21 05/22/21 22:16 22:16 20:14 RBC Hgb Hct MPV Neut % (Auto) Lymph % (Auto) Lymph # (Auto) [place] # (Auto) D-Dimer 1.04 H Chloride 95 L Glucose 111 H Calcium Phosphorus AST Lactate Dehydrogenase C-Reactive Protein 12.90 H Total Protein Albumin Triglycerides Procalcitonin 05/22/21 20:14 RBC 4.04 L Hgb 12.1 L Hct 36.7 L MPV 10.8 H Neut % (Auto) Lymph % (Auto) Lymph # (Auto) [place] # (Auto) 0.91 H D-Dimer Chloride Glucose Calcium Phosphorus AST Lactate Dehydrogenase C-Reactive Protein Total Protein Albumin Triglycerides Procalcitonin Meds: Medications Acetaminophen (Acetaminophen 325 Mg Tablet) 650 mg PO Q6HP PRN; Protocol PRN Reason: Per Pain Protocol/Fever > 101 Albuterol/Ipratropium (Ipratropium/Albuterol 3 Ml Ampul.Neb) 3 ml NEB Q4HRT PRN PRN Reason: Shortness Of Breath Aspirin (Aspirin 81 Mg Tab.Chew) 81 mg PO DAILY [facility] Last Admin: 05/24/21 07:57 Dose: 81 mg Documented by: Atorvastatin Calcium (Atorvastatin 40 Mg Tablet) 40 mg PO HS [facility] Last Admin: 05/23/21 23:13 Dose: 40 mg Documented by: Dexamethasone (Dexamethasone 10 Mg/Ml Vial) 6 mg IV DAILY [facility] Stop: 06/01/21 22:09 Last Admin: 05/24/21 07:56 Dose: 6 mg Documented by: Dextrose (Dextrose 50% 50 Ml Vial) 0 ml IV UD PRN PRN Reason: Hypoglycemia Diagnostic Test (Pha) (Accu-Chek 1 Each Strip) 1 each FS [facility] Last Admin: 05/24/21 12:50 Dose: 1 each Documented by: Duloxetine HCl (Duloxetine 30 Mg Capsule) 60 mg PO [facility] Last Admin: 05/23/21 23:13 Dose: 60 mg Documented by: Enoxaparin Sodium (Enoxaparin 40 Mg/0.4 Ml Syringe) 40 mg SQ DAILY [facility] Last Admin: 05/24/21 07:57 Dose: 40 mg Documented by: Furosemide (Furosemide 40 Mg Tablet) 40 mg PO DAILY [facility] Last Admin: 05/24/21 07:57 Dose: 40 mg Documented by: Glucose (Dextrose 31 Gm Oral.Susp) 15 gm PO PRN PRN PRN Reason: Hypoglycemia REMDESIVIR 100 mg/ Sodium (Chloride) 250 mls @ 500 mls/hr IV DAILY@1400 [facility] Stop: 05/26/21 14:29 Last Admin: 05/24/21 12:50 Dose: 500 mls/hr Documented by: Insulin Human Lispro (Insulin Lispro 1 Unit/0.01 Ml Unit) [address] [facility]; Protocol Last Admin: 05/24/21 12:50 Dose: 2 unit Documented by: Lactulose (Lactulose 20 Gm/30 Ml Oral.Linnette) 10 gm PO DAILYP PRN PRN Reason: Constipation Melatonin (Melatonin 3 Mg Tablet) 9 mg PO HSP PRN PRN Reason: Sleep Last Admin: 05/23/21 23:13 Dose: 9 mg Documented by: Metoprolol Succinate (Metoprolol Succinate 25 Mg Tab.Xl.24h) 12.5 mg PO DAILY [facility] Last Admin: 05/24/21 07:56 Dose: 12.5 mg Documented by: Omeprazole (Omeprazole 20 Mg Capsule) 20 mg PO ACB [facility] Last Admin: 05/24/21 07:57 Dose: 20 mg Documented by: Ondansetron HCl (Ondansetron 4 Mg/2 Ml Vial) 4 mg IV Q4HP PRN; Protocol PRN Reason: Nausea And Vomiting Budesonide- Formoterol 160-4.5 Mcg/Actuation Hfa Inhaler 1 dose INH BID [facility] Last Admin: 05/24/21 09:10 Dose: 1 dose Documented by: Spiriva Respimat 2.5 Mcg/Actuation Inhaler 2 dose INH DAILY [facility] Last Admin: 05/24/21 09:10 Dose: 2 dose Documented by: Senna (Sennosides 1 Tablet) 2 tab PO HSP PRN PRN Reason: Constipation Sodium Chloride (0.9 % Sodium Chloride 10 Ml Syringe) 10 ml IV Q8 [facility] Last Admin: 05/24/21 12:50 Dose: 10 ml Documented by: Spironolactone (Spironolactone 25 Mg Tablet) 25 mg PO DAILY [facility] Last Admin: 05/24/21 07:57 Dose: 25 mg Documented by: Terazosin HCl (Terazosin 1 Mg Capsule) 2 mg PO DAILY [facility] Last Admin: 05/24/21 09:10 Dose: Not Given Documented by: Tizanidine HCl (Tizanidine 4 Mg Tablet) 4 mg PO BIDP PRN PRN Reason: pain A/P Narrative A/P Narrative: A: #Acute hypoxic respiratory failure: -on 5L HFNC #Severe COVID-19 pneumonia: -CRP improving #Congestive heart failure (stable): #COPD (stable): #Type 2 diabetes mellitus: #Essential hypertension: #Depression: #GERD: #CHELO (has not used CPAP in several months): #Obesity w/ BMI 46: #Insomnia Plan -Dexamethasone and Remdesivir -Oxygen supplementation -proning/mobilization/oob to chair -Follow CRP -Continue DuoNeb Q6H and albuterol prn for now. -holding LABA/LAMA for now for RENEE/ROCKY treatment -cont BB/aldactone/lasix, ASA/Statin -SSI, holding home metformin for now. -Patient declined CPAP at bedtime. -Disposition: Probably home when stable. -DVT ppx: Lovenox/home ppi Code status: Boiler Inspector Spent With Patient Time: Total time spent is greater than 50% in coordination of care (as documented) at patient's floor/unit and/or counseling patient: QUALITY VTE Deep Vein Thrombosis/Pulmonary Embolism Present on Admission: No
[2021-05-24] MEDS ORDERED: CARBOXYMETHYLCELLULOSE SODIUM 1 EACH DROPER.GEL OU PRN (18:39)
[2021-05-24] MEDS: MELATONIN 3 MG TABLET PO PRN (21:10)
[2021-05-24] MEDS: DULoxetine 30 MG CAPSULE PO SCH (21:10)
[2021-05-24] MEDS: ATORVASTATIN 40 MG TABLET PO SCH (21:10)
[2021-05-25] MEDS: OMEPRAZOLE 20 MG CAPSULE PO SCH (07:18)
--- NOTE | 2021-05-25 07:20 | Internal Med Progress Note ---
SUBJECTIVE Subjective Patient information: Note initiated : 05/25/21 at 7:16 am Service Date, if different from initiated Date: [] Patient: Josiah Leos 70 y/o M admitted on 05/22/21 for Short of breath COVID positive. Chief Complaint: [] Interval history: Mr. Leos is a 70 year old male with a history of CHF, COPD, type 2 DM, obesity, fully vaccinated for COVID-19 with the Moderna vaccine, recently diagnosed with COVID-19 who presented to the ED for hypoxia on a home oxygen saturation meter. In the ED the patient was found to have a 2 l/min oxyg en requirement, workup is suggestive of severe COVID-19 pneumonia as the cause of hypoxia. Hospital medicine was asked to admit the patient. 05/24: stable respiratory status, might be able to wean down oxygen requirement today, chest xray shows improved bilateral infiltrates, CRP downtrending. 05/25 Patient was on 4 L oxygen last night but then increased high flow to 25 L and 50% FiO2, and around 7 placed back on 5 L NC. Patient states he is overall feeling better. Denies any shortness of breath at rest or while even ambulating to the toilet. Occasional cough. Review of Systems: denies headache/fever/chills/nausea/vomiting/chest or abdominal pain/diarrhea. Otherwise see above. Constitutional Vitals: Vital Signs Temp Pulse Resp BP Pulse Ox 98.0 F 55 L 21 157/81 95 05/25/21 04:01 05/25/21 04:52 05/25/21 04:52 05/25/21 04:01 05/25/21 07:09 Period Temp Pulse Resp BP Sys/Contreras Pulse Ox Last 24 Hr 96.9 F-98.2 F 51-73 12-24 106-161/61-96 50-98 Intake and Output 05/24/21 05/25/21 05/25/21 21:59 05:59 13:59 Intake Total 710 425 Output Total 1250 600 Balance -540 -175 Weight 146.238 kg Intake & Output: Intake & Output 05/24/21 05/25/21 05/25/21 21:59 05:59 13:59 Intake Total 710 425 Output Total 1250 600 Balance -540 -175 Weight 146.238 kg Intake: Oral 710 425 Output: Void Amount 1250 600 Other: Meal Dinner Percent of Meal Consumed 100% Feeding Ability Independent Urine Appearance Clear Clear Urine Color Dark Yellow Dark Yellow Exam: General: Alert, Awake, No acute Distress, obese Eyes/N/T: EOMI, Head/Neck: neck supple, CV: RRR, No murmurs, Pulm: diminished b/l, no wheezing Abd: soft, nontender, +BS x4 Ext: no clubbing/cyanosis, mild b/l LE edema Neuro: Alert, no focal deficits, moves all extremities, Skin: warm/dry OBJ DATA Labs CBC & Chem 7: 05/24/21 05:22 05/25/21 04:57 Labs: Abnormal Lab Results 05/24/21 05/24/21 05/24/21 05:23 05:22 05:22 RBC 3.89 L Hgb 11.8 L Hct 35.3 L MPV 10.7 H Neut % (Auto) Lymph % (Auto) Lymph # (Auto) [place] # (Auto) D-Dimer Chloride Glucose 115 H Calcium 8.5 L Phosphorus AST 42 H Lactate Dehydrogenase 332 H C-Reactive Protein 8.30 H Total Protein 5.8 L Albumin 3.0 L Triglycerides Procalcitonin 05/23/21 05/23/21 05/22/21 05:00 05:00 22:17 RBC 4.03 L Hgb 12.3 L Hct 37.1 L MPV 10.5 H Neut % (Auto) 78.3 H Lymph % (Auto) 12.5 L Lymph # (Auto) 1.26 L [place] # (Auto) 0.92 H D-Dimer Chloride Glucose 127 H Calcium Phosphorus 2.4 L AST 43 H Lactate Dehydrogenase 388 H C-Reactive Protein 14.40 H Total Protein Albumin Triglycerides 156 H Procalcitonin 0.21 H 05/22/21 05/22/21 05/22/21 22:16 22:16 20:14 RBC Hgb Hct MPV Neut % (Auto) Lymph % (Auto) Lymph # (Auto) [place] # (Auto) D-Dimer 1.04 H Chloride 95 L Glucose 111 H Calcium Phosphorus AST Lactate Dehydrogenase C-Reactive Protein 12.90 H Total Protein Albumin Triglycerides Procalcitonin 05/22/21 20:14 RBC 4.04 L Hgb 12.1 L Hct 36.7 L MPV 10.8 H Neut % (Auto) Lymph % (Auto) Lymph # (Auto) [place] # (Auto) 0.91 H D-Dimer Chloride Glucose Calcium Phosphorus AST Lactate Dehydrogenase C-Reactive Protein Total Protein Albumin Triglycerides Procalcitonin Meds: Medications Acetaminophen (Acetaminophen 325 Mg Tablet) 650 mg PO Q6HP PRN; Protocol PRN Reason: Per Pain Protocol/Fever > 101 Albuterol/Ipratropium (Ipratropium/Albuterol 3 Ml Ampul.Neb) 3 ml NEB Q4HRT PRN PRN Reason: Shortness Of Breath Artificial Tears (Carboxymethylcellulose Sodium 1 Each Droper.Gel) 1 each OU PRN PRN PRN Reason: Dry Eyes Last Admin: 05/24/21 21:10 Dose: 1 each Documented by: Aspirin (Aspirin 81 Mg Tab.Chew) 81 mg PO DAILY [facility] Last Admin: 05/24/21 07:57 Dose: 81 mg Documented by: Atorvastatin Calcium (Atorvastatin 40 Mg Tablet) 40 mg PO HS [facility] Last Admin: 05/24/21 21:10 Dose: 40 mg Documented by: Dexamethasone (Dexamethasone 10 Mg/Ml Vial) 6 mg IV DAILY [facility] Stop: 06/01/21 22:09 Last Admin: 05/24/21 07:56 Dose: 6 mg Documented by: Dextrose (Dextrose 50% 50 Ml Vial) 0 ml IV UD PRN PRN Reason: Hypoglycemia Diagnostic Test (Pha) (Accu-Chek 1 Each Strip) 1 each FS ACHS [facility] Last Admin: 05/24/21 21:09 Dose: 1 each Documented by: Duloxetine HCl (Duloxetine 30 Mg Capsule) 60 mg PO HS [facility] Last Admin: 05/24/21 21:10 Dose: 60 mg Documented by: Enoxaparin Sodium (Enoxaparin 40 Mg/0.4 Ml Syringe) 40 mg SQ DAILY [facility] Last Admin: 05/24/21 07:57 Dose: 40 mg Documented by: Furosemide (Furosemide 40 Mg Tablet) 40 mg PO DAILY [facility] Last Admin: 05/24/21 07:57 Dose: 40 mg Documented by: Glucose (Dextrose 31 Gm Oral.Susp) 15 gm PO PRN PRN PRN Reason: Hypoglycemia REMDESIVIR 100 mg/ Sodium (Chloride) 250 mls @ 500 mls/hr IV DAILY@1400 [facility] Stop: 05/26/21 14:29 Last Infusion: 05/24/21 13:50 Dose: Infused Documented by: Insulin Human Lispro (Insulin Lispro 1 Unit/0.01 Ml Unit) 0 unit SQ ACHS [facility]; Protocol Last Admin: 05/24/21 21:10 Dose: 1 unit Documented by: Lactulose (Lactulose 20 Gm/30 Ml Oral.Linnette) 10 gm PO DAILYP PRN PRN Reason: Constipation Melatonin (Melatonin 3 Mg Tablet) 9 mg PO HSP PRN PRN Reason: Sleep Last Admin: 05/24/21 21:10 Dose: 9 mg Documented by: Metoprolol Succinate (Metoprolol Succinate 25 Mg Tab.Xl.24h) 12.5 mg PO DAILY [facility] Last Admin: 05/24/21 07:56 Dose: 12.5 mg Documented by: Omeprazole (Omeprazole 20 Mg Capsule) 20 mg PO ACB [facility] Last Admin: 05/24/21 07:57 Dose: 20 mg Documented by: Ondansetron HCl (Ondansetron 4 Mg/2 Ml Vial) 4 mg IV Q4HP PRN; Protocol PRN Reason: Nausea And Vomiting Budesonide- Formoterol 160-4.5 Mcg/Actuation Hfa Inhaler 1 dose INH BID [facility] Last Admin: 05/24/21 21:13 Dose: 1 dose Documented by: Spiriva Respimat 2.5 Mcg/Actuation Inhaler 2 dose INH DAILY [facility] Last Admin: 05/24/21 09:10 Dose: 2 dose Documented by: Senna (Sennosides 1 Tablet) 2 tab PO HSP PRN PRN Reason: Constipation Sodium Chloride (0.9 % Sodium Chloride 10 Ml Syringe) 10 ml IV Q8 [facility] Last Admin: 05/24/21 21:14 Dose: 10 ml Documented by: Spironolactone (Spironolactone 25 Mg Tablet) 25 mg PO DAILY [facility] Last Admin: 05/24/21 07:57 Dose: 25 mg Documented by: Terazosin HCl (Terazosin 1 Mg Capsule) 2 mg PO DAILY [facility] Last Admin: 05/24/21 09:10 Dose: Not Given Documented by: Tizanidine HCl (Tizanidine 4 Mg Tablet) 4 mg PO BIDP PRN PRN Reason: pain A/P Narrative A/P Narrative: A: #Acute hypoxic respiratory failure: -on HFNC 25lpm & 50% last night then down to 5L in morning #Severe COVID-19 pneumonia: -CRP improving #Congestive heart failure (stable): #COPD (stable): #Type 2 diabetes mellitus: #Essential hypertension: #Depression: #GERD: #CHELO (has not used CPAP in several months): #Obesity w/ BMI 46: #Insomnia: Plan -Dexamethasone and Remdesivir -Oxygen supplementation, wean as able -proning/mobilization/oob to chair -Follow CRP -Continue home IH's and prn DuoNeb -cont BB/ACEI, aldactone/lasix, ASA/Statin -SSI, holding home metformin for now. -Patient declined CPAP at bedtime. -Disposition: Probably home when stable. -DVT ppx: Lovenox/home ppi Code status: Stock Wetter Spent With Patient Time: Total time spent is greater than 50% in coordination of care (as documented) at patient's floor/unit and/or counseling patient: QUALITY VTE Deep Vein Thrombosis/Pulmonary Embolism Present on Admission: No
[2021-05-25] MEDS: 0.9 % SODIUM CHLORIDE 10 ML SYRINGE IV SCH ×3 (07:22→21:12)
[2021-05-25] MEDS: INSULIN LISPRO 1 UNIT/0.01 ML UNIT SQ SCH ×4 (07:38→21:19)
[2021-05-25 07:39] LABS: Blood Urea Nitrogen 22 mg/dL (8-23); Calcium 8.6 mg/dL (8.6-10.4); Carbon Dioxide 27 mmol/L (22-30); Chloride 104 mmol/L (96-108); Glomerular Filtration Rate 90; Glucose 105 mg/dL (70-105)
[2021-05-25] MEDS: ASPIRIN 81 MG TAB.CHEW PO SCH (08:25)
[2021-05-25] MEDS: DEXAMETHASONE 10 MG/ML VIAL IV SCH (08:25)
[2021-05-25] MEDS: ENOXAPARIN 40 MG/0.4 ML SYRINGE SQ SCH (08:25)
[2021-05-25] MEDS: FUROSEMIDE 40 MG TABLET PO SCH (08:26)
[2021-05-25] MEDS: SPIRONOLACTONE 25 MG TABLET PO SCH (08:26)
[2021-05-25] MEDS: TERAZOSIN 1 MG CAPSULE PO SCH ×2 (08:26→08:28)
[2021-05-25] MEDS: SPIRIVA RESPIMAT INH SCH (08:33)
[2021-05-25] MEDS ORDERED: FUROSEMIDE 20 MG/2 ML VIAL IV ONE (09:00)
[2021-05-25 10:12] LABS: Alkaline Phosphatase 52 U/L (39-117)
[2021-05-25 10:13] LABS: ALT/SGPT 41 U/L (<40); AST/SGOT 50 U/L (<40)
[2021-05-25] MEDS: METOPROLOL SUCCINATE 25 MG TAB.XL.24H PO SCH (11:12)
[2021-05-25] MEDS: LISINOPRIL 20 MG TABLET PO SCH (11:30)
[2021-05-25] MEDS: CARBOXYMETHYLCELLULOSE SODIUM 1 EACH DROPER.GEL OU SCH ×4 (11:33→21:12)
[2021-05-25] MEDS: REMDESIVIR 100 MG in 0.9 % SODIUM CHLORIDE 250 ML IV SCH (15:36)
[2021-05-25] MEDS: TAMSULOSIN 0.4 MG CAPSULE PO SCH (21:11)
[2021-05-25] MEDS: PREGABALIN 100 MG CAPSULE PO SCH (21:11)
[2021-05-25] MEDS: ATORVASTATIN 40 MG TABLET PO SCH (21:11)
[2021-05-25] MEDS: DULoxetine 30 MG CAPSULE PO SCH (21:11)
[2021-05-25] MEDS: MELATONIN 3 MG TABLET PO PRN (22:08)
[2021-05-26] MEDS: 0.9 % SODIUM CHLORIDE 10 ML SYRINGE IV SCH ×3 (06:19→21:09)
[2021-05-26] MEDS: OMEPRAZOLE 20 MG CAPSULE PO SCH (07:01)
[2021-05-26] MEDS: INSULIN LISPRO 1 UNIT/0.01 ML UNIT SQ SCH ×4 (07:42→21:26)
--- NOTE | 2021-05-26 07:47 | Internal Med Progress Note ---
SUBJECTIVE Subjective Patient information: Note initiated : 05/26/21 at 7:45 am Service Date, if different from initiated Date: [] Patient: Josiah Leos 70 y/o M admitted on 05/22/21 for Short of breath COVID positive. Chief Complaint: [] Interval history: Mr. Leos is a 70 year old male with a history of CHF, COPD, type 2 DM, obesity, fully vaccinated for COVID-19 with the Moderna vaccine, recently diagnosed with COVID-19 who presented to the ED for hypoxia on a home oxygen saturation meter. In the ED the patient was found to have a 2 l/min oxyg en requirement, workup is suggestive of severe COVID-19 pneumonia as the cause of hypoxia. Hospital medicine was asked to admit the patient. 05/24: stable respiratory status, might be able to wean down oxygen requirement today, chest xray shows improved bilateral infiltrates, CRP downtrending. 05/25 Patient was on 4 L oxygen last night but then increased high flow to 25 L and 50% FiO2, and around 7 placed back on 5 L NC. Patient states he is overall feeling better. Denies any shortness of breath at rest or while even ambulating to the toilet. Occasional cough. 05/26 Patient states nurse had a hard time with her CPAP machine last night. After he was off that he slept well. Is on 3.5 L of oxygen when I went in there I left him down to 3. He does have a cough. Does not notice shortness of breath at rest or when he goes to the bathroom. Review of Systems: denies headache/fever/chills/nausea/vomiting/chest or abdominal pain/diarrhea. Otherwise see above. Constitutional Vitals: Vital Signs Temp Pulse Resp BP Pulse Ox 97.5 F 60 25 H 147/71 93 05/26/21 04:00 05/26/21 06:00 05/26/21 06:00 05/26/21 06:00 05/26/21 06:00 Period Temp Pulse Resp BP Sys/Contreras Pulse Ox Last 24 Hr 97.1 F-97.5 F 51-67 17-28 120-170/64-104 84-99 Intake and Output 05/25/21 05/26/21 05/26/21 21:59 05:59 13:59 Intake Total 250 240 Output Total 800 775 Balance -550 -535 Weight 141.691 kg 139.344 kg Intake & Output: Intake & Output 05/25/21 05/26/21 05/26/21 21:59 05:59 13:59 Intake Total 250 240 Output Total 800 775 Balance -550 -950 Weight 141.691 kg 139.344 kg Intake: IV 250 Veklury 100 mg In Sodium 250 Chloride 0.9% 250 ml @ 500 mls/ hr IV DAILY@1400 [facility] Rx#: [id number] Oral 240 Output: Urine Catheter Amount 200 Void Amount 600 775 Other: Meal Lunch Percent of Meal Consumed 100% Urine Appearance Clear Clear Urine Color Bright Yellow Bright Yellow Urine Odor Normal # of times incontinent of 1 Bowels Exam: General: Alert, Awake, No acute Distress, obese Eyes/N/T: EOMI, Head/Neck: neck supple, CV: RRR, No murmurs, Pulm: diminished b/l mild rales more on the right, no wheezing Abd: soft, nontender, +BS x4 Ext: no clubbing/cyanosis, 1+ b/l LE edema Neuro: Alert, no focal deficits, moves all extremities, Skin: warm/dry OBJ DATA Labs CBC & Chem 7: 05/24/21 05:22 05/25/21 04:57 Labs: Abnormal Lab Results 05/25/21 05/24/21 05/24/21 04:57 05:23 05:22 RBC Hgb Hct MPV Glucose 115 H Calcium 8.5 L Phosphorus AST 50 H 42 H ALT 41 H Lactate Dehydrogenase 332 H C-Reactive Protein 8.30 H Total Protein 5.8 L Albumin 3.0 L Triglycerides 05/24/21 05/23/21 05:22 05:00 RBC 3.89 L Hgb 11.8 L Hct 35.3 L MPV 10.7 H Glucose 127 H Calcium Phosphorus 2.4 L AST 43 H ALT Lactate Dehydrogenase 388 H C-Reactive Protein 14.40 H Total Protein Albumin Triglycerides 156 H Meds: Medications Acetaminophen (Acetaminophen 325 Mg Tablet) 650 mg PO Q6HP PRN; Protocol PRN Reason: Per Pain Protocol/Fever > 101 Albuterol/Ipratropium (Ipratropium/Albuterol 3 Ml Ampul.Neb) 3 ml NEB Q4HRT PRN PRN Reason: Shortness Of Breath Artificial Tears (Carboxymethylcellulose Sodium 1 Each Droper.Gel) 1 each OU QID [facility] Last Admin: 05/25/21 21:12 Dose: 1 each Documented by: Aspirin (Aspirin 81 Mg Tab.Chew) 81 mg PO DAILY [facility] Last Admin: 05/25/21 08:25 Dose: 81 mg Documented by: Atorvastatin Calcium (Atorvastatin 40 Mg Tablet) 40 mg PO HS [facility] Last Admin: 05/25/21 21:11 Dose: 40 mg Documented by: Dexamethasone (Dexamethasone 10 Mg/Ml Vial) 6 mg IV DAILY [facility] Stop: 06/01/21 22:09 Last Admin: 05/25/21 08:25 Dose: 6 mg Documented by: Dextrose (Dextrose 50% 50 Ml Vial) 0 ml IV UD PRN PRN Reason: Hypoglycemia Diagnostic Test (Pha) (Accu-Chek 1 Each Strip) 1 each FS ACHS [facility] Last Admin: 05/25/21 21:19 Dose: 1 each Documented by: Duloxetine HCl (Duloxetine 30 Mg Capsule) 60 mg PO HS [facility] Last Admin: 05/25/21 21:11 Dose: 60 mg Documented by: Enoxaparin Sodium (Enoxaparin 40 Mg/0.4 Ml Syringe) 40 mg SQ DAILY [facility] Last Admin: 05/25/21 08:25 Dose: 40 mg Documented by: Furosemide (Furosemide 40 Mg Tablet) 40 mg PO DAILY [facility] Last Admin: 05/25/21 08:26 Dose: 40 mg Documented by: Glucose (Dextrose 31 Gm Oral.Susp) 15 gm PO PRN PRN PRN Reason: Hypoglycemia REMDESIVIR 100 mg/ Sodium (Chloride) 250 mls @ 500 mls/hr IV DAILY@1400 [facility] Stop: 05/26/21 14:29 Last Infusion: 05/25/21 18:05 Dose: Infused Documented by: Insulin Human Lispro (Insulin Lispro 1 Unit/0.01 Ml Unit) 0 unit SQ [facility]; Protocol Last Admin: 05/25/21 21:19 Dose: Not Given Documented by: Lactulose (Lactulose 20 Gm/30 Ml Oral.Linnette) 10 gm PO DAILYP PRN PRN Reason: Constipation Lisinopril (Lisinopril 20 Mg Tablet) 20 mg PO DAILY [facility] Last Admin: 05/25/21 11:30 Dose: 20 mg Documented by: Melatonin (Melatonin 3 Mg Tablet) 9 mg PO HSP PRN PRN Reason: Sleep Last Admin: 05/25/21 22:08 Dose: 9 mg Documented by: Metoprolol Succinate (Metoprolol Succinate 25 Mg Tab.Xl.24h) 12.5 mg PO DAILY [facility] Last Admin: 05/25/21 11:12 Dose: Not Given Documented by: Omeprazole (Omeprazole 20 Mg Capsule) 20 mg PO ACB [facility] Last Admin: 05/25/21 07:18 Dose: 20 mg Documented by: Ondansetron HCl (Ondansetron 4 Mg/2 Ml Vial) 4 mg IV Q4HP PRN; Protocol PRN Reason: Nausea And Vomiting Budesonide- Formoterol 160-4.5 Mcg/Actuation Hfa Inhaler 1 dose INH BID [facility] Last Admin: 05/25/21 21:19 Dose: 1 dose Documented by: Spiriva Respimat 2.5 Mcg/Actuation Inhaler 2 dose INH DAILY [facility] Last Admin: 05/25/21 08:33 Dose: 2 dose Documented by: Pregabalin (Pregabalin 100 Mg Capsule) 100 mg PO BID [facility] Last Admin: 05/25/21 21:11 Dose: 100 mg Documented by: Senna (Sennosides 1 Tablet) 2 tab PO HSP PRN PRN Reason: Constipation Sodium Chloride (0.9 % Sodium Chloride 10 Ml Syringe) 10 ml IV Q8 [facility] Last Admin: 05/26/21 06:19 Dose: 10 ml Documented by: Spironolactone (Spironolactone 25 Mg Tablet) 25 mg PO DAILY [facility] Last Admin: 05/25/21 08:26 Dose: 25 mg Documented by: Tamsulosin HCl (Tamsulosin 0.4 Mg Capsule) 0.8 mg PO QHS [facility] Last Admin: 05/25/21 21:11 Dose: 0.8 mg Documented by: Terazosin HCl (Terazosin 1 Mg Capsule) 2 mg PO DAILY [facility] Last Admin: 05/25/21 08:28 Dose: Not Given Documented by: Tizanidine HCl (Tizanidine 4 Mg Tablet) 4 mg PO BIDP PRN PRN Reason: pain A/P Narrative A/P Narrative: A: #Acute hypoxic respiratory failure: -on 4L this morning #Severe COVID-19 pneumonia: -CRP improving #Congestive heart failure (stable): #COPD (stable): #Type 2 diabetes mellitus: #Essential hypertension: #Depression: #GERD: #CHELO (has not used CPAP in several months): #Obesity w/ BMI 46: #Insomnia: Plan -Dexamethasone and Remdesivir -Oxygen supplementation, wean as able -proning/mobilization/oob to chair -CPAP @night -Continue home IH's and prn DuoNeb -cont BB/ACEI, aldactone/lasix, ASA/Statin -SSI, holding home metformin for now. -Disposition: Probably home when stable -DVT ppx: Lovenox/home ppi Code status: Childcare Director Spent With Patient Time: Total time spent is greater than 50% in coordination of care (as documented) at patient's floor/unit and/or counseling patient: QUALITY VTE Deep Vein Thrombosis/Pulmonary Embolism Present on Admission: No
[2021-05-26] MEDS: ENOXAPARIN 40 MG/0.4 ML SYRINGE SQ SCH (08:24)
[2021-05-26] MEDS: DEXAMETHASONE 10 MG/ML VIAL IV SCH (08:25)
[2021-05-26] MEDS: METOPROLOL SUCCINATE 25 MG TAB.XL.24H PO SCH (08:25)
[2021-05-26] MEDS: SPIRONOLACTONE 25 MG TABLET PO SCH (08:25)
[2021-05-26] MEDS: ASPIRIN 81 MG TAB.CHEW PO SCH (08:25)
[2021-05-26] MEDS: FUROSEMIDE 40 MG TABLET PO SCH (08:25)
[2021-05-26] MEDS: LISINOPRIL 20 MG TABLET PO SCH (08:25)
[2021-05-26] MEDS: PREGABALIN 100 MG CAPSULE PO SCH ×2 (08:34→21:10)
[2021-05-26] MEDS: CARBOXYMETHYLCELLULOSE SODIUM 1 EACH DROPER.GEL OU SCH ×4 (08:35→21:10)
[2021-05-26] MEDS: SPIRIVA RESPIMAT INH SCH (08:35)
[2021-05-26] MEDS: TERAZOSIN 1 MG CAPSULE PO SCH (08:36)
--- NOTE | 2021-05-26 09:57 | Discharge Summary ---
Discharge Provider Provider Patient information: Note initiated : 05/26/21 at 9:56 am Service Date, if different from initiated Date: [] Patient: Josiah Leos 70 y/o M admitted on 05/22/21 for Short of breath COVID positive. Chief Complaint: [] Date of admission: 05/22/21 22:59 Discharge date: 05/28/21 Primary care physician: Teresita Hair Consults: 05/22/21 Consult to Physician [CONS] Stat Comment: Consulting Provider: Matt Gray Reason For Exam: Physician to Consult Discharge Meds Discharge Medications Home Medications Natural Psyllium Fiber 2 ea PO QHS 01/12/18 [History Confirmed 05/23/21 Last Taken 05/21/21 10:00] aspirin 81 mg PO DAILY 01/12/18 [History Confirmed 05/23/21 Last Taken 05/22/21 10:00] atorvastatin 40 mg PO HS 01/12/18 [History Confirmed 05/23/21 Last Taken 05/21/21 22:00] carvedilol [Coreg] 3.125 mg PO DAILY 01/12/18 [History Confirmed 05/23/21 Last Taken 05/22/21 10:00] cholecalciferol (vitamin D3) [Dialyvite Vitamin D] 5,000 unit PO DAILY 01/12/18 [History Confirmed 05/23/21 Last Taken 05/22/21 10:00] cyanocobalamin (vitamin B-12) 500 mcg PO DAILY 01/12/18 [History Confirmed 05/23/21 Last Taken 05/22/21 10:00] docusate sodium 250 mg PO BID 01/12/18 [History Confirmed 05/23/21 Last Taken 05/22/21 10:00] duloxetine [Cymbalta] 60 mg PO QHS 01/12/18 [History Confirmed 05/23/21 Last Taken 05/22/21 10:00] furosemide 40 mg PO DAILY 01/12/18 [History Confirmed 05/23/21 Last Taken 05/22/21 10:00] lisinopril [Zestril] 40 mg PO DAILY 01/12/18 [History Confirmed 05/23/21 Last Taken 05/22/21 10:00] methocarbamol [Robaxin-750] 750 mg PO DAILY 01/12/18 [History Confirmed 05/23/21 Last Taken 05/22/21 10:00] omeprazole 20 mg PO ACB 01/12/18 [History Confirmed 05/23/21 Last Taken 05/22/21 10:00] spironolactone 25 mg PO DAILY 01/12/18 [History Confirmed 05/23/21 Last Taken 05/22/21 10:00] terazosin 2 mg PO DAILY 01/12/18 [History Confirmed 05/23/21 Last Taken 05/22/21 10:00] acetaminophen 325 mg tablet 650 mg PO QID PRN tab 03/24/21 [History Confirmed 05/23/21 Last Taken 05/22/21 10:00] albuterol sulfate 90 mcg/actuation aerosol inhaler 2 puff INHALATION QIDP PRN MDD wheezing 03/24/21 [History Confirmed 05/23/21 Last Taken 05/22/21 12:00] budesonide-formoterol HFA 160 mcg-4.5 mcg/actuation aerosol inhaler 2 puff INHALATION BID 03/24/21 [History Confirmed 05/23/21 Last Taken 05/22/21 10:00] diclofenac sodium 1 % topical gel 2 g TOPICAL QID 03/24/21 [History Confirmed Last Taken 05/21/21 10:00] hydrocortisone 2.5 % topical ointment 1 applic TOPICAL BID 03/24/21 [History Confirmed 05/23/21 Last Taken 02/03/21 10:00] lidocaine 5 % topical ointment 1 applic TOPICAL BID 03/24/21 [History Confirmed 05/23/21 Last Taken 02/03/21 10:00] tiotropium bromide 2.5 mcg/actuation mist for inhalation 2 puff INHALATION QDAY 03/24/21 [History Confirmed 05/23/21 Last Taken 05/22/21 10:00] tizanidine 4 mg tablet 4 mg PO BID PRN 03/24/21 [History Confirmed 05/23/21 Last Taken 05/22/21 10:00] varenicline 1 mg tablet 1 mg PO BID 03/24/21 [History Confirmed 05/23/21 Last Ta alfonso 05/22/21 10:00] metformin 500 mg tablet 500 mg PO BID 04/17/21 [History Confirmed 05/23/21 Last Taken 05/22/21 10:00] doxycycline monohydrate 100 mg capsule 100 mg PO BID 7 Days #14 cap 05/19/21 [Rx Confirmed 05/23/21 Last Taken 05/22/21 22:00] prednisone 20 mg tablet 40 mg PO QAM 5 Days #10 tab 05/19/21 [Rx Confirmed 05/23/21 Last Taken 05/22/21 10:00] carboxymethylcellulose sodium 1 drp OPHTHALMIC (EYE) QID 05/23/21 [History Confirmed 05/23/21 Last Taken Unknown] cyclosporine 1 drp OPHTHALMIC (EYE) Q12H 05/23/21 [History Confirmed 05/23/21 Last Taken Unknown] griseofulvin microsize 500 mg PO BID 05/23/21 [History Confirmed 05/23/21 Last Taken Unknown] ketoconazole 1 applic TOPICAL 2-3XW PRN 05/23/21 [History Confirmed 05/23/21 Last Taken Unknown] meloxicam 1 mg PO DAILY 05/23/21 [History Confirmed 05/23/21 Last Taken Unknown] metoprolol succinate 12.5 mg PO DAILY 05/23/21 [History Confirmed 05/23/21 Last Taken Unknown] pregabalin 100 mg PO BID 05/23/21 [History Confirmed 05/23/21 Last Taken Unknown] sildenafil See Rx Instructions .ROUTE .COMPLEX 05/23/21 [History Confirmed 05/23/21 Last Taken Unknown] tamsulosin 0.8 mg PO QHS 05/23/21 [History Confirmed 05/23/21 Last Taken Un known] COURSE Hospital Course Hospital course: Interval history: Mr. Leos is a 70 year old male with a history of CHF, COPD, type 2 DM, obesity, fully vaccinated for COVID-19 with the Moderna vaccine, recently diagnosed with COVID-19 who presented to the ED for hypoxia on a home oxygen saturation meter. In the ED the patient was found to have a 2 l/min oxygen requirement, workup is suggestive of severe COVID-19 pneumonia as the cause of hypoxia. Hospital medicine was asked to admit the patient. 05/24: stable respiratory status, might be able to wean down oxygen requirement today, chest xray shows improved bilateral infiltrates, CRP downtrending. 05/25 Patient was on 4 L oxygen last night but then increased high flow to 25 L and 50% FiO2, and around 7 placed back on 5 L NC. Patient states he is overall feeling better. Denies any shortness of breath at rest or while even ambulating to the toilet. Occasional cough. 05/26 Patient states nurse had a hard time with her CPAP machine last night. After he was off that he slept well. Is on 3.5 L of oxygen when I went in there I left him down to 3. He does have a cough. Does not notice shortness of breath at rest or when he goes to the bathroom. 05/27 Was down to 1L yesterday evening. Bumped up to 9L this morning. When I visited with him I dropped him down to 4 with sats in the low 90s. Patient does not feel any worse. And does ambulate to the bathroom without issues or noticeable shortness of breath Has mild productive cough. 05/28 Feeling well. Requires minimal amount of oxygen throughout the day and then at night requires more but then again in the morning improving again. Does not feel short of breath when he goes to the bathroom. Overall feeling much better. A/P Narrative: A: #Acute hypoxic respiratory failure: -on 4L this morning #Severe COVID-19 pneumonia: -CRP improving #Congestive heart failure (stable): #COPD (stable): #Type 2 diabetes mellitus: #Essential hypertension: #Depression: #GERD: #CHELO (has not used CPAP in several months): #Obesity w/ BMI 46: #Insomnia: Discharge diagnosis: Covid pneumonia severe, acute hypoxic respiratory failure Secondary discharge diagnosis: CHF COPD diabetes hypertension depression GERD obstructive sleep apnea obesity insomnia Time Spent with Patient Time attestation: Total time spent providing and/or coordinating discharge services: Time spent: Greater than 30 minutes EXAM Constitutional Vitals: Temp Pulse Resp BP Pulse Ox 97.5 F 60 25 H 147/71 93 05/26/21 04:00 05/26/21 06:00 05/26/21 06:00 05/26/21 06:00 05/26/21 06:00 Discharge Data Data Completed and Pending Labs on day of discharge: Labs from last 24 hours 05/25/21 04:57 AST 50 H ALT 41 H Alkaline Phosphatase 52 Preliminary micro results at discharge 05/22/21 20:30 Blood Culture - Preliminary Blood 05/22/21 20:14 Blood Culture - Preliminary Blood Discharge Plan Patient/Caregiver Discharge Instructions Activity: increase activity as tolerated Diet: Consistent Carbohydrate Activity Restrictions/Additional Instructions: Will need home oxygen for Covid pneumonia Prescriptions: Continued albuterol sulfate 90 mcg/actuation HFA aerosol inhaler 2 puff inhalation QIDP MDD wheezing PRN (Reason: wheezing ) RF: 0 budesonide-formoterol 160-4.5 mcg/actuation HFA aerosol inhaler 2 puff inhalation BID RF: 0 diclofenac sodium 1 % gel 2 g topical QID RF: 0 hydrocortisone 2.5 % ointment 1 applic topical BID RF: 0 lidocaine 5 % ointment 1 applic topical BID RF: 0 tiotropium bromide 2.5 mcg/actuation mist 2 puff inhalation QDAY RF: 0 tizanidine 4 mg tablet 4 mg PO BID PRN (Reason: pain) RF: 0 varenicline 1 mg tablet 1 mg PO BID RF: 0 metformin 500 mg tablet 500 mg PO BID RF: 0 doxycycline monohydrate 100 mg capsule 100 mg PO BID 7 Days Qty: 14 RF: 0 prednisone 20 mg tablet 40 mg PO QAM 5 Days Qty: 10 RF: 0 furosemide 40 MG tablet 40 mg PO DAILY RF: 0 atorvastatin 40 MG tablet 40 mg PO HS RF: 0 lisinopril [Zestril] 20 MG tablet 40 mg PO DAILY RF: 0 terazosin 1 MG capsule 2 mg PO DAILY RF: 0 aspirin 81 MG tablet,delayed release (DR/EC) 81 mg PO DAILY RF: 0 spironolactone 25 MG tablet 25 mg PO DAILY RF: 0 carvedilol [Coreg] 3.125 MG tablet 3.125 mg PO DAILY RF: 0 methocarbamol [Robaxin-750] 750 MG tablet 750 mg PO DAILY RF: 0 cyanocobalamin (vitamin B-12) 500 MCG tablet 500 mcg PO DAILY RF: 0 omeprazole 20 MG capsule 20 mg PO ACB RF: 0 docusate sodium 250 MG capsule 250 mg PO BID RF: 0 cholecalciferol (vitamin D3) [Dialyvite Vitamin D] 5,000 UNIT capsule 5,000 unit PO DAILY RF: 0 duloxetine [Cymbalta] 60 MG capsule,delayed release(DR/EC) 60 mg PO QHS RF: 0 Natural Psyllium Fiber 1,044 GM powder 2 ea PO QHS RF: 0 acetaminophen [Non-Aspirin] 325 mg tablet 650 mg PO QID PRN (Reason: Pain) RF: 0 metoprolol succinate 25 mg tablet extended release 24 hr 12.5 mg PO DAILY RF: 0 carboxymethylcellulose sodium 0.5 % Drops 1 drp OPHTHALMIC (EYE) QID RF: 0 cyclosporine 0.05 % Drops 1 drp OPHTHALMIC (EYE) Q12H RF: 0 meloxicam 15 mg tablet 1 mg PO DAILY RF: 0 sildenafil 100 mg tablet See Rx Instructions .ROUTE .COMPLEX RF: 0 ketoconazole 2 % cream 1 applic TOPICAL 2-3XW PRN (Reason: Itching) RF: 0 pregabalin 50 mg capsule 100 mg PO BID RF: 0 tamsulosin 0.4 mg capsule 0.8 mg PO QHS RF: 0 griseofulvin microsize 500 mg tablet 500 mg PO BID RF: 0 Follow Up Plan Patient Disposition: Home, Self-Care Prognosis: Fair Overall status at discharge: patient is progressing back to baseline Discharge Orders: Discharge Order (Routine); Ordered 05/28/21 Ordered By: Shen POP VTE Deep Vein Thrombosis/Pulmonary Embolism Present on Admission: No
[2021-05-26] MEDS: REMDESIVIR 100 MG in 0.9 % SODIUM CHLORIDE 250 ML IV SCH (13:47)
[2021-05-26] MEDS: TAMSULOSIN 0.4 MG CAPSULE PO SCH (21:10)
[2021-05-26] MEDS: ATORVASTATIN 40 MG TABLET PO SCH (21:10)
[2021-05-26] MEDS: DULoxetine 30 MG CAPSULE PO SCH (21:10)
[2021-05-26] MEDS: MELATONIN 3 MG TABLET PO PRN (21:22)
[2021-05-27] MEDS: 0.9 % SODIUM CHLORIDE 10 ML SYRINGE IV SCH ×3 (05:50→21:20)
[2021-05-27] MEDS: OMEPRAZOLE 20 MG CAPSULE PO SCH (06:56)
[2021-05-27] MEDS: INSULIN LISPRO 1 UNIT/0.01 ML UNIT SQ SCH ×4 (07:05→21:33)
--- NOTE | 2021-05-27 07:33 | Internal Med Progress Note ---
SUBJECTIVE Subjective Patient information: Note initiated : 05/27/21 at 7:31 am Service Date, if different from initiated Date: [] Patient: Josiah Leos 70 y/o M admitted on 05/22/21 for Short of breath COVID positive. Chief Complaint: [] Interval history: Mr. Leos is a 70 year old male with a history of CHF, COPD, type 2 DM, obesity, fully vaccinated for COVID-19 with the Moderna vaccine, recently diagnosed with COVID-19 who presented to the ED for hypoxia on a home oxygen saturation meter. In the ED the patient was found to have a 2 l/min oxyg en requirement, workup is suggestive of severe COVID-19 pneumonia as the cause of hypoxia. Hospital medicine was asked to admit the patient. 05/24: stable respiratory status, might be able to wean down oxygen requirement today, chest xray shows improved bilateral infiltrates, CRP downtrending. 05/25 Patient was on 4 L oxygen last night but then increased high flow to 25 L and 50% FiO2, and around 7 placed back on 5 L NC. Patient states he is overall feeling better. Denies any shortness of breath at rest or while even ambulating to the toilet. Occasional cough. 05/26 Patient states nurse had a hard time with her CPAP machine last night. After he was off that he slept well. Is on 3.5 L of oxygen when I went in there I left him down to 3. He does have a cough. Does not notice shortness of breath at rest or when he goes to the bathroom. 05/27 Was down to 1L yesterday evening. Bumped up to 9L this morning. When I visited with him I dropped him down to 4 with sats in the low 90s. Patient does not feel any worse. And does ambulate to the bathroom without issues or noticeable shortness of breath Has mild productive cough. Review of Systems: denies headache/fever/chills/nausea/vomiting/chest or abdominal pain/diarrhea. Otherwise see above. Constitutional Vitals: Vital Signs Temp Pulse Resp BP Pulse Ox 97.4 F 54 L 26 H 157/87 94 05/27/21 04:00 05/27/21 06:00 05/27/21 06:00 05/27/21 06:00 05/27/21 06:00 Period Temp Pulse Resp BP Sys/Contreras Pulse Ox Last 24 Hr 96.5 F-97.4 F 53-77 13-27 119-165/79-99 89-97 Intake and Output 05/26/21 05/27/21 05/27/21 21:59 05:59 13:59 Intake Total 3320 Output Total 2700 1550 Balance 620 -1550 Weight 143.426 kg Intake & Output: Intake & Output 05/26/21 05/27/21 05/27/21 21:59 05:59 13:59 Intake Total 3320 Output Total 2700 1550 Balance 620 -1550 Weight 143.426 kg Intake: Oral 3320 Output: Void Amount 2700 1550 Other: Meal Dinner Percent of Meal Consumed 100% Feeding Ability Independent Urine Appearance Clear Clear Urine Color Pale Pale Urine Odor Normal Stool Size Moderate Stool Color Brown Stool Consistency Soft # Bowel Movements 1 Exam: General: Alert, Awake, No acute Distress, obese Eyes/N/T: EOMI, Head/Neck: neck supple, CV: RRR, No murmurs, Pulm: diminished b/l mild rales more on the right, no wheezing Abd: soft, nontender, +BS x4 Ext: no clubbing/cyanosis, 1+ b/l LE edema Neuro: Alert, no focal deficits, moves all extremities, Skin: warm/dry OBJ DATA Labs CBC & Chem 7: 05/24/21 05:22 05/25/21 04:57 Labs: Abnormal Lab Results 05/25/21 05/24/21 05/24/21 04:57 05:23 05:22 RBC Hgb Hct MPV Glucose 115 H Calcium 8.5 L AST 50 H 42 H ALT 41 H Lactate Dehydrogenase 332 H C-Reactive Protein 8.30 H Total Protein 5.8 L Albumin 3.0 L 05/24/21 05:22 RBC 3.89 L Hgb 11.8 L Hct 35.3 L MPV 10.7 H Glucose Calcium AST ALT Lactate Dehydrogenase C-Reactive Protein Total Protein Albumin Meds: Medications Acetaminophen (Acetaminophen 325 Mg Tablet) 650 mg PO Q6HP PRN; Protocol PRN Reason: Per Pain Protocol/Fever > 101 Albuterol/Ipratropium (Ipratropium/Albuterol 3 Ml Ampul.Neb) 3 ml NEB Q4HRT PRN PRN Reason: Shortness Of Breath Artificial Tears (Carboxymethylcellulose Sodium 1 Each Droper.Gel) 1 each OU QID [facility] Last Admin: 05/26/21 21:10 Dose: 1 each Documented by: Aspirin (Aspirin 81 Mg Tab.Chew) 81 mg PO DAILY [facility] Last Admin: 05/26/21 08:25 Dose: 81 mg Documented by: Atorvastatin Calcium (Atorvastatin 40 Mg Tablet) 40 mg PO HS [facility] Last Admin: 05/26/21 21:10 Dose: 40 mg Documented by: Dexamethasone (Dexamethasone 10 Mg/Ml Vial) 6 mg IV DAILY [facility] Stop: 06/01/21 22:09 Last Admin: 05/26/21 08:25 Dose: 6 mg Documented by: Dextrose (Dextrose 50% 50 Ml Vial) 0 ml IV UD PRN PRN Reason: Hypoglycemia Diagnostic Test (Pha) (Accu-Chek 1 Each Strip) 1 each FS [facility] Last Admin: 05/27/21 07:05 Dose: 1 each Documented by: Duloxetine HCl (Duloxetine 30 Mg Capsule) 60 mg PO HS [facility] Last Admin: 05/26/21 21:10 Dose: 60 mg Documented by: Enoxaparin Sodium (Enoxaparin 40 Mg/0.4 Ml Syringe) 40 mg SQ DAILY [facility] Last Admin: 05/26/21 08:24 Dose: 40 mg Documented by: Furosemide (Furosemide 40 Mg Tablet) 40 mg PO DAILY [facility] Last Admin: 05/26/21 08:25 Dose: 40 mg Documented by: Glucose (Dextrose 31 Gm Oral.Susp) 15 gm PO PRN PRN PRN Reason: Hypoglycemia Insulin Human Lispro (Insulin Lispro 1 Unit/0.01 Ml Unit) 0 unit SQ [facility]; Protocol Last Admin: 05/27/21 07:05 Dose: Not Given Documented by: Lactulose (Lactulose 20 Gm/30 Ml Oral.Linnette) 10 gm PO DAILYP PRN PRN Reason: Constipation Lisinopril (Lisinopril 20 Mg Tablet) 20 mg PO DAILY [facility] Last Admin: 05/26/21 08:25 Dose: 20 mg Documented by: Melatonin (Melatonin 3 Mg Tablet) 9 mg PO HSP PRN PRN Reason: Sleep Last Admin: 05/26/21 21:22 Dose: 9 mg Documented by: Metoprolol Succinate (Metoprolol Succinate 25 Mg Tab.Xl.24h) 12.5 mg PO DAILY [facility] Last Admin: 05/26/21 08:25 Dose: 12.5 mg Documented by: Omeprazole (Omeprazole 20 Mg Capsule) 20 mg PO ACB [facility] Last Admin: 05/27/21 06:56 Dose: 20 mg Documented by: Ondansetron HCl (Ondansetron 4 Mg/2 Ml Vial) 4 mg IV Q4HP PRN; Protocol PRN Reason: Nausea And Vomiting Budesonide- Formoterol 160-4.5 Mcg/Actuation Hfa Inhaler 1 dose INH BID [facility] Last Admin: 05/26/21 21:22 Dose: 1 dose Documented by: Spiriva Respimat 2.5 Mcg/Actuation Inhaler 2 dose INH DAILY [facility] Last Admin: 05/26/21 08:35 Dose: 2 dose Documented by: Pregabalin (Pregabalin 100 Mg Capsule) 100 mg PO BID [facility] Last Admin: 05/26/21 21:10 Dose: 100 mg Documented by: Senna (Sennosides 1 Tablet) 2 tab PO HSP PRN PRN Reason: Constipation Sodium Chloride (0.9 % Sodium Chloride 10 Ml Syringe) 10 ml IV Q8 [facility] Last Admin: 05/27/21 05:50 Dose: 10 ml Documented by: Spironolactone (Spironolactone 25 Mg Tablet) 25 mg PO DAILY [facility] Last Admin: 05/26/21 08:25 Dose: 25 mg Documented by: Tamsulosin HCl (Tamsulosin 0.4 Mg Capsule) 0.8 mg PO QHS [facility] Last Admin: 05/26/21 21:10 Dose: 0.8 mg Documented by: Terazosin HCl (Terazosin 1 Mg Capsule) 2 mg PO DAILY [facility] Last Admin: 05/26/21 08:36 Dose: Not Given Documented by: Tizanidine HCl (Tizanidine 4 Mg Tablet) 4 mg PO BIDP PRN PRN Reason: pain A/P Narrative A/P Narrative: A: #Acute hypoxic respiratory failure: -was down to 1L yesterday, pt not tolerating home cpap, likely need pressure adjustment -currently on 3-4L down from 9 earlier this morning. #Severe COVID-19 pneumonia: -CRP improving #Congestive heart failure (stable): #COPD ( ): #Type 2 diabetes mellitus: #Essential hypertension: #Depression: #GERD: #CEHLO (has not used CPAP in several months): #Obesity w/ BMI 46: #Insomnia: Plan -Dexamethasone and Remdesivir (finished) -Oxygen supplementation, wean as able -proning/mobilization/oob to chair -CPAP @night -Continue home IH's and prn DuoNeb -cont BB/ACEI, aldactone/lasix, ASA/Statin -SSI, holding home metformin for now. -needs f/u with pulm for adjusted pressures on cpap -Disposition: Probably home when stable -DVT ppx: Lovenox/home ppi Code status: Mend Worker Spent With Patient Time: Total time spent is greater than 50% in coordination of care (as documented) at patient's floor/unit and/or counseling patient: QUALITY VTE Deep Vein Thrombosis/Pulmonary Embolism Present on Admission: No
[2021-05-27] MEDS: CARBOXYMETHYLCELLULOSE SODIUM 1 EACH DROPER.GEL OU SCH ×5 (09:00→21:20)
--- NOTE | 2021-05-27 09:19 | XRay Report ---
CLINICAL INFORMATION: Follow-up infiltrate COMPARISON: 05/24/2021 FINDINGS: Mild cardiomegaly is unchanged. Mediastinum and pulmonary vessels are normal. Moderate patchy left and smaller patchy right basilar infiltrates show slight improvement. The right midlung infiltrate is resolved. No definite effusion IMPRESSION: Improving bilateral infiltrates Interpreted and Authenticated by: Josiah Nelson 05/27/21
[2021-05-27] MEDS ORDERED: FUROSEMIDE 40 MG/4 ML VIAL IV ONE (09:27)
[2021-05-27] MEDS ORDERED: ALBUMIN HUMAN 12.5 GM/50 ML BAG IV ONE (09:27)
[2021-05-27] MEDS ORDERED: IPRATROPIUM/ALBUTEROL 3 ML AMPUL.NEB NEB ONE (09:28)
[2021-05-27] MEDS: SPIRIVA RESPIMAT INH SCH (09:37)
[2021-05-27] MEDS: SPIRONOLACTONE 25 MG TABLET PO SCH (11:29)
[2021-05-27] MEDS: METOPROLOL SUCCINATE 25 MG TAB.XL.24H PO SCH (11:29)
[2021-05-27] MEDS: PREGABALIN 100 MG CAPSULE PO SCH ×2 (11:30→21:19)
[2021-05-27] MEDS: LISINOPRIL 20 MG TABLET PO SCH (11:30)
[2021-05-27] MEDS: TERAZOSIN 1 MG CAPSULE PO SCH (11:30)
[2021-05-27] MEDS: ASPIRIN 81 MG TAB.CHEW PO SCH (11:31)
[2021-05-27] MEDS: FUROSEMIDE 40 MG TABLET PO SCH (11:31)
[2021-05-27] MEDS: ENOXAPARIN 40 MG/0.4 ML SYRINGE SQ SCH (11:31)
[2021-05-27] MEDS ORDERED: DEXAMETHASONE 4 MG TABLET PO ONE (14:30)
[2021-05-27] MEDS: DEXAMETHASONE 10 MG/ML VIAL IV SCH (18:49)
[2021-05-27] MEDS: DULoxetine 30 MG CAPSULE PO SCH (21:19)
[2021-05-27] MEDS: MELATONIN 3 MG TABLET PO PRN (21:19)
[2021-05-27] MEDS: TAMSULOSIN 0.4 MG CAPSULE PO SCH (21:19)
[2021-05-27] MEDS: ATORVASTATIN 40 MG TABLET PO SCH (21:19)
[2021-05-28] MEDS: 0.9 % SODIUM CHLORIDE 10 ML SYRINGE IV SCH (05:35)
[2021-05-28] MEDS: INSULIN LISPRO 1 UNIT/0.01 ML UNIT SQ SCH ×2 (07:11→11:42)
[2021-05-28] MEDS: PREGABALIN 100 MG CAPSULE PO SCH (07:28)
[2021-05-28] MEDS: METOPROLOL SUCCINATE 25 MG TAB.XL.24H PO SCH (07:28)
[2021-05-28] MEDS: LISINOPRIL 20 MG TABLET PO SCH (07:28)
--- NOTE | 2021-05-28 07:28 | Internal Med Progress Note ---
SUBJECTIVE Subjective Patient information: Note initiated : 05/28/21 at 7:27 am Service Date, if different from initiated Date: [] Patient: Josiah Leos 70 y/o M admitted on 05/22/21 for Short of breath COVID positive. Chief Complaint: [] Interval history: Mr. Leos is a 70 year old male with a history of CHF, COPD, type 2 DM, obesity, fully vaccinated for COVID-19 with the Moderna vaccine, recently diagnosed with COVID-19 who presented to the ED for hypoxia on a home oxygen saturation meter. In the ED the patient was found to have a 2 l/min oxyg en requirement, workup is suggestive of severe COVID-19 pneumonia as the cause of hypoxia. Hospital medicine was asked to admit the patient. 05/24: stable respiratory status, might be able to wean down oxygen requirement today, chest xray shows improved bilateral infiltrates, CRP downtrending. 05/25 Patient was on 4 L oxygen last night but then increased high flow to 25 L and 50% FiO2, and around 7 placed back on 5 L NC. Patient states he is overall feeling better. Denies any shortness of breath at rest or while even ambulating to the toilet. Occasional cough. 05/26 Patient states nurse had a hard time with her CPAP machine last night. After he was off that he slept well. Is on 3.5 L of oxygen when I went in there I left him down to 3. He does have a cough. Does not notice shortness of breath at rest or when he goes to the bathroom. 05/27 Was down to 1L yesterday evening. Bumped up to 9L this morning. When I visited with him I dropped him down to 4 with sats in the low 90s. Patient does not feel any worse. And does ambulate to the bathroom without issues or noticeable shortness of breath Has mild productive cough. 05/28 Feeling well. Requires minimal amount of oxygen throughout the day and then at night requires more but then again in the morning improving again. Does not feel short of breath when he goes to the bathroom. Overall feeling much better. Review of Systems: denies headache/fever/chills/nausea/vomiting/chest or abdominal pain/diarrhea. Otherwise see above. Constitutional Vitals: Vital Signs Temp Pulse Resp BP Pulse Ox 97.2 F 61 18 115/77 93 05/28/21 04:01 05/28/21 06:01 05/28/21 06:01 05/28/21 06:01 05/28/21 06:01 Period Temp Pulse Resp BP Sys/Contreras Pulse Ox Last 24 Hr 97.2 F-98.5 F 55-99 17-33 96-149/60-138 86-96 Intake and Output 05/27/21 05/28/21 05/28/21 21:59 05:59 13:59 Intake Total 1999 Output Total 1650 2375 Balance 350 -1575 Weight 145.603 kg Intake & Output: Intake & Output 05/27/21 05/28/21 05/28/21 21:59 05:59 13:59 Intake Total 1999 800 Output Total 1650 2375 Balance 350 -1575 Weight 145.603 kg Intake: Oral 1999 Output: Void Amount 1650 2375 Other: Meal Lunch Percent of Meal Consumed 100% Feeding Ability Assist with Tray Set Up Urine Appearance Clear Clear Urine Color Pale Pale Urine Odor Normal Exam: General: Alert, Awake, No acute Distress, obese Eyes/N/T: EOMI, Head/Neck: neck supple, CV: RRR, No murmurs, Pulm: better aeration b/l, no wheezing Abd: soft, nontender, +BS x4 Ext: no clubbing/cyanosis, 1+ b/l LE edema Neuro: Alert, no focal deficits, moves all extremities, Skin: warm/dry OBJ DATA Labs CBC & Chem 7: 05/24/21 05:22 05/25/21 04:57 Labs: Abnormal Lab Results 05/25/21 04:57 AST 50 H ALT 41 H Meds: Medications Acetaminophen (Acetaminophen 325 Mg Tablet) 650 mg PO Q6HP PRN; Protocol PRN Reason: Per Pain Protocol/Fever > 101 Last Admin: 05/27/21 17:19 Dose: 650 mg Documented by: Albuterol/Ipratropium (Ipratropium/Albuterol 3 Ml Ampul.Neb) 3 ml NEB Q4HRT PRN PRN Reason: Shortness Of Breath Last Admin: 05/27/21 09:28 Dose: 3 ml Documented by: Artificial Tears (Carboxymethylcellulose Sodium 1 Each Droper.Gel) 1 each OU QID [facility] Last Admin: 05/27/21 21:20 Dose: 1 each Documented by: Aspirin (Aspirin 81 Mg Tab.Chew) 81 mg PO DAILY [facility] Last Admin: 05/27/21 11:31 Dose: 81 mg Documented by: Atorvastatin Calcium (Atorvastatin 40 Mg Tablet) 40 mg PO HS [facility] Last Admin: 05/27/21 21:19 Dose: 40 mg Documented by: Dexamethasone (Dexamethasone 4 Mg Tablet) 6 mg PO DAILY [facility] Stop: 06/01/21 09:01 Dextrose (Dextrose 50% 50 Ml Vial) 0 ml IV UD PRN PRN Reason: Hypoglycemia Diagnostic Test (Pha) (Accu-Chek 1 Each Strip) 1 each FS [facility] Last Admin: 05/28/21 07:10 Dose: 1 each Documented by: Duloxetine HCl (Duloxetine 30 Mg Capsule) 60 mg PO HS [facility] Last Admin: 05/27/21 21:19 Dose: 60 mg Documented by: Enoxaparin Sodium (Enoxaparin 40 Mg/0.4 Ml Syringe) 40 mg SQ DAILY [facility] Last Admin: 05/27/21 11:31 Dose: 40 mg Documented by: Furosemide (Furosemide 40 Mg Tablet) 40 mg PO DAILY [facility] Last Admin: 05/27/21 11:31 Dose: 40 mg Documented by: Glucose (Dextrose 31 Gm Oral.Susp) 15 gm PO PRN PRN PRN Reason: Hypoglycemia Insulin Human Lispro (Insulin Lispro 1 Unit/0.01 Ml Unit) 0 unit SQ [facility]; Protocol Last Admin: 05/28/21 07:11 Dose: Not Given Documented by: Lactulose (Lactulose 20 Gm/30 Ml Oral.Linnette) 10 gm PO DAILYP PRN PRN Reason: Constipation Lisinopril (Lisinopril 20 Mg Tablet) 20 mg PO DAILY [facility] Last Admin: 05/27/21 11:30 Dose: 20 mg Documented by: Melatonin (Melatonin 3 Mg Tablet) 9 mg PO HSP PRN PRN Reason: Sleep Last Admin: 05/27/21 21:19 Dose: 9 mg Documented by: Metoprolol Succinate (Metoprolol Succinate 25 Mg Tab.Xl.24h) 12.5 mg PO DAILY [facility] Last Admin: 05/27/21 11:29 Dose: 12.5 mg Documented by: Omeprazole (Omeprazole 20 Mg Capsule) 20 mg PO ACB [facility] Last Admin: 05/27/21 06:56 Dose: 20 mg Documented by: Ondansetron HCl (Ondansetron 4 Mg/2 Ml Vial) 4 mg IV Q4HP PRN; Protocol PRN Reason: Nausea And Vomiting Budesonide- Formoterol 160-4.5 Mcg/Actuation Hfa Inhaler 1 dose INH BID [facility] Last Admin: 05/27/21 21:33 Dose: 1 dose Documented by: Spiriva Respimat 2.5 Mcg/Actuation Inhaler 2 dose INH DAILY [facility] Last Admin: 05/27/21 09:37 Dose: 2 dose Documented by: Pregabalin (Pregabalin 100 Mg Capsule) 100 mg PO BID [facility] Last Admin: 05/27/21 21:19 Dose: 100 mg Documented by: Senna (Sennosides 1 Tablet) 2 tab PO HSP PRN PRN Reason: Constipation Sodium Chloride (0.9 % Sodium Chloride 10 Ml Syringe) 10 ml IV Q8 [facility] Last Admin: 05/28/21 05:35 Dose: 10 ml Documented by: Spironolactone (Spironolactone 25 Mg Tablet) 25 mg PO DAILY [facility] Last Admin: 05/27/21 11:29 Dose: 25 mg Documented by: Tamsulosin HCl (Tamsulosin 0.4 Mg Capsule) 0.8 mg PO QHS [facility] Last Admin: 05/27/21 21:19 Dose: 0.8 mg Documented by: Terazosin HCl (Terazosin 1 Mg Capsule) 2 mg PO DAILY [facility] Last Admin: 05/27/21 11:30 Dose: 2 mg Documented by: Tizanidine HCl (Tizanidine 4 Mg Tablet) 4 mg PO BIDP PRN PRN Reason: pain A/P Narrative A/P Narrative: A: #Acute hypoxic respiratory failure: -was down to 1L yesterday, pt not tolerating home cpap, likely need pressure adjustment -currently on 3-4L down from 9 earlier this morning. #Severe COVID-19 pneumonia: -CRP improving #Congestive heart failure (stable): #COPD (not on home O2): #Type 2 diabetes mellitus: #Essential hypertension: #Depression: #GERD: #CHELO (has not used CPAP in several months): #Obesity w/ BMI 46: #Insomnia: Plan -Dexamethasone and Remdesivir (finished) -Oxygen supplementation, wean as able -proning/mobilization/oob to chair -CPAP @night -Continue home IH's and prn DuoNeb -cont BB/ACEI, aldactone/lasix, ASA/Statin -SSI, holding home metformin for now. -needs f/u with pulm for adjusted pressures on cpap -Disposition: Probably home when stable -DVT ppx: Lovenox/home ppi Code status: Fish Bin Tender Spent With Patient Time: Total time spent is greater than 50% in coordination of care (as documented) at patient's floor/unit and/or counseling patient: QUALITY VTE Deep Vein Thrombosis/Pulmonary Embolism Present on Admission: No
[2021-05-28] MEDS: ASPIRIN 81 MG TAB.CHEW PO SCH (07:29)
[2021-05-28] MEDS: TERAZOSIN 1 MG CAPSULE PO SCH (07:29)
[2021-05-28] MEDS: OMEPRAZOLE 20 MG CAPSULE PO SCH (07:30)
[2021-05-28] MEDS: SPIRONOLACTONE 25 MG TABLET PO SCH (07:30)
[2021-05-28] MEDS: FUROSEMIDE 40 MG TABLET PO SCH (07:30)
[2021-05-28] MEDS: ENOXAPARIN 40 MG/0.4 ML SYRINGE SQ SCH (07:32)
[2021-05-28] MEDS: SPIRIVA RESPIMAT INH SCH (07:33)
[2021-05-28] MEDS: CARBOXYMETHYLCELLULOSE SODIUM 1 EACH DROPER.GEL OU SCH (07:34)
[2021-05-28] MEDS ORDERED: DEXAMETHASONE 4 MG TABLET PO SCH (09:00)
== END 2021-05-28 12:40 | disposition home or self-care (01) | DRG 177 ==
LOC: ED 19:15 → ICU 22:59
PROVIDERS: ADMIT Internal Medicine; ATTEND Internal Medicine